=== PATIENT | female | born 1960 | race Hispanic/Latino ===

== ENCOUNTER 2018-02-26 15:31 | Emergency (ER) | payer OTHER ==
[2018-02-26 16:20] LABS: Urine Blood NEGATIVE (NEG); Urine Glucose 2+ (NEG); Urine Protein NEGATIVE (NEG); Urine pH 6.5 (5.0-7.0)
[2018-02-26 16:24] LABS: Absolute Monocytes 0.7 K/uL (0.1-1.3); Absolute Neutrophil 5.8 K/uL (1.8-8.0); Basophils % 0.3 % (0-1.3); Eosinophils % 1.6 % (0-4.4); Lymphocytes % 23.3 % (15.3-44.8); MCH 28.2 pg (27.0-35.0); MCV 83.8 fL (80-100); MPV 8.9 fL (7.6-11.3); Monocytes % 8.3 % (3.3-12.3); RBC Red Blood Cell Count 4.05 M/uL (3.86-4.86)
[2018-02-26 16:27] LABS: Urine Bacteria <20 /HPF (<20); Urine RBC NONE SEEN /HPF (NONE SEEN)
[2018-02-26 16:28] LABS: Urine Culture Reflex Order NOT NEEDED
[2018-02-26 16:28] LABS: Potassium 3.9 mmol/L (3.5-5.1)
--- NOTE | 2018-02-26 16:35 | RAD REPORT ---
EXAM DESCRIPTION: CT - Stone Protocol - 02/26/2018 4:14 pm CLINICAL HISTORY: Dysuria, right lower back and flank pain COMPARISON: CT November 2017 TECHNIQUE: Axial 5 mm thick images were obtained without oral or IV contrast. The [id number] span s the entirety of the system including uppermost abdomen and lung bases. All CT scans are performed using dose optimization technique as appropriate and may include automated exposure control or mA/KV adjustment according to patient size. FINDINGS: Fullness of the right renal pelvis is present similar to the comparison study. No UPJ ston e identified. Ureter is not dilated. No ureteral calculus seen. A 7 millimeter calcification upper po le right kidney is believed to be in the parenchyma rather than a calyx. Lobulated contour and areas of cortical thinning in the right kidney are probably from prior infection. Ischemic insults would be possible as well. Atrophic left kidney is present with parenchymal calcification. This is a stable a ppearance. No suspicious renal masses. Isodense masses and pyelonephritis are not excluded on a stone protocol CT scan. No urinary bladder suspicious finding. Uterus and ovaries show no suspicious findi ngs. Imaged portions of the liver, spleen and pancreas show no suspicious findings on non-contrast imaging . Gallbladder is absent. No biliary tree dilatation. No significant adrenal finding. No suspicious bowel findings. No appendicitis or acute GI process seen. There are mesenteric lymph no pao seen in the central abdomen similar to comparison. No hernia, mass or bulky lymphadenopathy noted. No free air, free fluid or inflammatory stranding. No significant bony abnormality. IMPRESSION: No obstructing calculus or acute finding identified. The above detailed findings are stable from November comparison. Isodense masses and pyelonephritis are not excluded on stone protocol technique. Elsewhere CT abdomen and pelvis imaging shows no new finding since November examination.
[2018-02-26] MEDS ORDERED: ONDANSETRON 4 MG/2 ML VIAL ONE (16:36)
--- NOTE | 2018-02-26 17:13 | ER ---
Nurse's Notes [facility] Name: Crystal Alexis Age: 57 yrs Sex: Female : 1960 Arrival Date: 02/26/2018 Time: 15:34 Bed 15 Private MD: None, None Diagnosis: Low back pain Presentation: 02/26 15:35 Presenting complaint: Patient states: Right lower back pain and burning with urination aj since yesterday. Denies fever. Denies taking OTC medications. Transition of care: patient was not received from another setting of care. Onset of symptoms was February 26, 2018. Risk Assessment: Do you want to hurt yourself or someone else? Patient reports no desire to harm self or others. Initial Sepsis Screen: Does the patient meet any 2 criteria? No. Patient's initial sepsis screen is negative. Does the patient have a suspected source of infection? No. Patient's initial sepsis screen is negative. Care prior to arrival: None. 15:35 Method Of Arrival: Ambulatory aj 15:35 Acuity: GARY 3 aj Triage Assessment: 15:35 General: Appears in no apparent distress. comfortable, Behavior is calm, cooperative, aj appropriate for age. Pain: Complains of pain in right mid back. Neuro: Level of Consciousness is awake, alert, obeys commands, Oriented to person, place, time, situation, Appropriate for age. Respiratory: Airway is patent Respiratory effort is even, unlabored, Respiratory pattern is regular, symmetrical. : Reports burning with urination, pain in right in lower back. Derm: Skin is intact, is healthy with good turgor, Skin is pink, warm \T\ dry. normal. Musculoskeletal: Capillary refill < 3 seconds, in bilateral fingers. Historical: - Allergies: 15:37 No Known Allergies; aj - Home Meds: 15:37 Metoprolol Tartrate Oral [Active]; Furosemide Oral [Active]; insulin [Active]; Insulin: aj Regular Sub-Q [Active]; Plavix 75 mg Oral tab 1 tab once daily [Active]; Metoprolol Tartrate Oral [Active]; Spironolactone Oral [Active]; unknown cholesterol med [Active]; - PMHx: 15:37 CVA; Diabetes - IDDM; Hypertension; Myocardial infarction; Renal Disease; aj - PSHx: 15:37 Tubal ligation; Cholecystectomy; cardiac stents x2; aj - Immunization history:: Adult Immunizations up to date. - Social history:: Smoking status: Patient uses tobacco products, smokes one-half pack cigarettes per day. - Ebola Screening: : Patient negative for fever greater than or equal to 101.5 degrees Fahrenheit, and additional compatible Ebola Virus Disease symptoms Patient denies exposure to infectious person Patient denies travel to an Ebola-affected area in the 21 days before illness onset No symptoms or risks identified at this time. Screenin:35 Abuse screen: Denies threats or abuse. Denies injuries from another. Nutritional jl7 screening: No deficits noted. Tuberculosis screening: No symptoms or risk factors identified. Fall Risk IV access (20 points). Assessment: 16:00 General: Appears in no apparent distress. uncomfortable, Behavior is calm, cooperative, jl7 appropriate for age. Pain: Complains of pain in right flank Pain radiates to right lower quadrant Pain currently is 8 out of 10 on a pain scale. Is continuous. Neuro: Level of Consciousness is awake, alert, obeys commands, Oriented to person, place, time, situation. Cardiovascular: Patient's skin is warm and dry. Respiratory: Airway is patent Respiratory effort is even, unlabored, Respiratory pattern is regular, symmetrical. GI: No signs and/or symptoms were reported involving the gastrointestinal system. : No signs and/or symptoms were reported regarding the genitourinary system. EENT: No signs and/or symptoms were reported regarding the EENT system. Derm: Skin is pink, warm \T\ dry. 16:35 Reassessment: pt c/o nausea, provider notified, see MAR for orders. jl7 Vital Signs: 15:35 BP 154 / 74; Pulse 90; Resp 18; Temp 97.4; Pulse Ox 100% on R/A; Weight 69.85 kg; aj Height 5 ft. 0 in. (152.40 cm); 16:35 BP 131 / 74; Pulse 85; Resp 16 S; Pulse Ox 96% on R/A; Pain 8/10; jl7 17:40 BP 135 / 77; Pulse 84; Resp 16 S; Pulse Ox 100% on R/A; jl7 15:35 Body Mass Index 30.08 (69.85 kg, 152.40 cm) ED Course: 15:34 Patient arrived in ED. mr 15:34 None, None is Private Physician. mr 15:35 Arm band placed on left wrist. Patient placed in an exam room. aj 15:36 Triage completed. aj 15:39 Adonis Duron PA is PHCP. jr8 15:39 Hiram Awan MD is Attending Physician. jr8 15:55 Lindsay Almanzar, ELIAZAR is Primary Nurse. jl7 16:08 Urine Microscopic Only Sent. mg2 16:10 Initial lab(s) drawn, by me, sent to lab. Inserted saline lock: 20 gauge in right jl7 forearm, using aseptic technique. Blood collected. 16:14 CT Stone Protocol In Process Unspecified. EDMS 16:35 Patient has correct armband on for positive identification. Bed in low position. Call jl7 light in reach. Side rails up X 1. Pulse ox on. NIBP on. Warm blanket given. 17:57 No provider procedures requiring assistance completed. IV discontinued, intact, jl7 bleeding controlled, No redness/swelling at site. Pressure dressing applied. Administered Medications: 16:50 Drug: Zofran 4 mg Route: IVP; Site: right forearm; jl7 17:00 Follow up: Response: No adverse reaction; Nausea is decreased jl7 17:40 Drug: morphine 4 mg Route: IVP; Site: right forearm; jl7 17:50 Follow up: Response: No adverse reaction; Pain is decreased jl7 Outcome: 17:12 Discharge ordered by . jr8 17:57 Discharged to home ambulatory, with family. jl7 17:57 Condition: stable 17:57 Discharge instructions given to patient, family, Instructed on discharge instructions, follow up and referral plans. medication usage, Demonstrated understanding of instructions, follow-up care, medications, Prescriptions given X 2. 18:02 Patient left the ED. jl7 Signatures: Dispatcher [employer] EDMS Nadia Greene RN RN aj SimoneMayuri mr Adonis Duron PA PA jr8 Lindsay Almanzar RN RN jl7 Reed Hernandez RN RN mg2 Corrections: (The following items were deleted from the chart) 15:37 15:35 Acuity: GARY 4 aj aj 17:58 04:50 Zofran 4 mg IVP in right forearm jl7 jl7
--- NOTE | 2018-02-26 17:13 | EDPHYS ---
Physician Documentation [facility] Name: Crystal Alexis Age: 57 yrs Sex: Female : 1960 Arrival Date: 02/26/2018 Time: 15:34 Bed 15 Private MD: None, None ED Physician Hiram Awan HPI: 02/26 15:59 This 57 yrs old Female presents to ER via Ambulatory with complaints of Back jr8 Pain. 15:59 The patient presents with pain that is acute. The symptoms are located in the right jr8 flank. Onset: The symptoms/episode began/occurred acutely, yesterday. The pain radiates to the abdomen. Associated signs and symptoms: Pertinent positives: dysuria, nausea. Modifying factors: The patient symptoms are alleviated by nothing, the patient symptoms are aggravated by nothing. Severity of symptoms: At their worst the symptoms were mild, in the emergency department the symptoms are unchanged. The patient has not experienced similar symptoms in the past. The patient has not recently seen a physician. Historical: - Allergies: 15:37 No Known Allergies; aj - Home Meds: 15:37 Metoprolol Tartrate Oral [Active]; Furosemide Oral [Active]; insulin [Active]; Insulin: aj Regular Sub-Q [Active]; Plavix 75 mg Oral tab 1 tab once daily [Active]; Metoprolol Tartrate Oral [Active]; Spironolactone Oral [Active]; unknown cholesterol med [Active]; - PMHx: 15:37 CVA; Diabetes - IDDM; Hypertension; Myocardial infarction; Renal Disease; aj - PSHx: 15:37 Tubal ligation; Cholecystectomy; cardiac stents x2; aj - Immunization history:: Adult Immunizations up to date. - Social history:: Smoking status: Patient uses tobacco products, smokes one-half pack cigarettes per day. - Ebola Screening: : Patient negative for fever greater than or equal to 101.5 degrees Fahrenheit, and additional compatible Ebola Virus Disease symptoms Patient denies exposure to infectious person Patient denies travel to an Ebola-affected area in the 21 days before illness onset No symptoms or risks identified at this time. ROS: 15:59 Constitutional: Negative for fever, chills, and weight loss. jr8 15:59 Abdomen/GI: Positive for nausea, Negative for abdominal pain, vomiting, diarrhea, abdominal distension, hematemesis, black/tarry stool, rectal pain, rectal bleeding, bowel incontinence, flatulence. 15:59 Back: Positive for pain at rest, of the right flank. 15:59 All other systems are negative. Exam: 15:59 Eyes: Pupils equal round and reactive to light, extra-ocular motions intact. Lids and jr8 lashes normal. Conjunctiva and sclera are non-icteric and not injected. Cornea within normal limits. Periorbital areas with no swelling, redness, or edema. ENT: Nares patent. No nasal discharge, no septal abnormalities noted. Tympanic membranes are normal and external auditory canals are clear. Oropharynx with no redness, swelling, or masses, exudates, or evidence of obstruction, uvula midline. Mucous membranes moist. Neck: Trachea midline, no thyromegaly or masses palpated, and no cervical lymphadenopathy. Supple, full range of motion without nuchal rigidity, or vertebral point tenderness. No Meningismus. Cardiovascular: Regular rate and rhythm with a normal S1 and S2. No gallops, murmurs, or rubs. Normal PMI, no JVD. No pulse deficits. Respiratory: Lungs have equal breath sounds bilaterally, clear to auscultation and percussion. No rales, rhonchi or wheezes noted. No increased work of breathing, no retractions or nasal flaring. Skin: Warm, dry with normal turgor. Normal color with no rashes, no lesions, and no evidence of cellulitis. MS/ Extremity: Pulses equal, no cyanosis. Neurovascular intact. Full, normal range of motion. Neuro: Awake and alert, GCS 15, oriented to person, place, time, and situation. Cranial nerves II-XII grossly intact. Motor strength 5/5 in all extremities. Sensory grossly intact. Cerebellar exam normal. Normal gait. 15:59 Abdomen/GI: Inspection: obese Bowel sounds: active, all quadrants, Palpation: soft, in all quadrants, moderate abdominal tenderness, in the anterior aspect of right lateral abdomen, mass, is not appreciated, rebound tenderness, is not appreciated, voluntary guarding, is not appreciated, involuntary guarding, is not appreciated, no appreciated organomegaly, Indicators: McBurney's point is not tender, Waldron's sign is negative, Rovsing's sign is negative, Liver: no appreciated palpable abnormalities, tenderness. 15:59 Back: pain, that is moderate, of the right flank, ROM is normal, normal spinal alignment noted, CVA tenderness, that is mild, is noted on the right, vertebral tenderness, is not appreciated. Vital Signs: 15:35 BP 154 / 74; Pulse 90; Resp 18; Temp 97.4; Pulse Ox 100% on R/A; Weight 69.85 kg; aj Height 5 ft. 0 in. (152.40 cm); 16:35 BP 131 / 74; Pulse 85; Resp 16 S; Pulse Ox 96% on R/A; Pain 8/10; jl7 17:40 BP 135 / 77; Pulse 84; Resp 16 S; Pulse Ox 100% on R/A; jl7 15:35 Body Mass Index 30.08 (69.85 kg, 152.40 cm) aj MDM: 15:39 Patient medically screened. jr8 17:09 Differential diagnosis: chronic back pain, Hydronephrosis Neoplasm Pyelonephritis jr8 ruptured disc, spinal injury, Ureterolithiasis. Data reviewed: vital signs, nurses notes, lab test result(s), radiologic studies, CT scan. Data interpreted: Pulse oximetry: on room air is 96 %. Interpretation: normal. Counseling: I had a detailed discussion with the patient and/or guardian regarding: the historical points, exam findings, and any diagnostic results supporting the discharge/admit diagnosis, lab results, radiology results, the need for outpatient follow up, a family practitioner, to return to the emergency department if symptoms worsen or persist or if there are any questions or concerns that arise at home. Response to treatment: the patient's symptoms have markedly improved after treatment. 02/26 15:57 Order name: Urine Microscopic Only; Complete Time: 16:28 [facility] 02/26 15:57 Order name: CBC with Diff; Complete Time: 16:27 [facility] 02/26 15:57 Order name: Basic Metabolic Panel; Complete Time: 16:28 [facility] 02/26 15:57 Order name: CT Stone Protocol; Complete Time: 16:37 [facility] 02/26 16:14 Order name: Urine Dipstick--Ancillary (enter results); Complete Time: 16:27 mt 02/26 16:14 Order name: Urine --Ancillary (enter results); Complete Time: 16:27 mt 02/26 15:57 Order name: Urine Dipstick-Ancillary (obtain specimen); Complete Time: 16:08 jr8 Administered Medications: 16:50 Drug: Zofran 4 mg Route: IVP; Site: right forearm; jl7 17:00 Follow up: Response: No adverse reaction; Nausea is decreased jl7 17:40 Drug: morphine 4 mg Route: IVP; Site: right forearm; jl7 17:50 Follow up: Response: No adverse reaction; Pain is decreased jl7 Disposition: 18:36 Co-signature as Attending Physician, Hiram Awan MD. rn Disposition: 02/26/18 17:12 Discharged to Home. Impression: Low back pain. - Condition is Stable. - Discharge Instructions: Back Pain, Adult, Musculoskeletal Pain. - Prescriptions for Tylenol- Codeine #3 300-30 mg Oral Tablet - take 2 tablet by ORAL route every 6 hours As needed; 30 tablet. Zofran 4 mg Oral Tablet - take 1 tablet by ORAL route every 12 hours As needed; 20 tablet. - Medication Reconciliation Form, Thank You Letter, Antibiotic Education, Prescription Opioid Use form. - Follow up: Private Physician; When: 2 - 3 days; Reason: Recheck today's complaints, Continuance of care, Re-evaluation by your physician. - Problem is new. - Symptoms have improved. Signatures: Dispatcher [employer] EDMS Nadia Greene RN Hiram Calle MD MD rn Roszak, Josh, PA PA jr8 Lindsay Almanzar RN RN jl7 Corrections: (The following items were deleted from the chart) 18:02 17:12 02/26/2018 17:12 Discharged to Home. Impression: Low back pain. Condition is jl7 Stable. Forms are Medication Reconciliation Form, Thank You Letter, Antibiotic Education, Prescription Opioid Use. Follow up: Private Physician; When: 2 - 3 days; Reason: Recheck today's complaints, Continuance of care, Re-evaluation by your physician. Problem is new. Symptoms have improved. jr8
[2018-02-26] MEDS ORDERED: MORPHINE 4 MG/ML SYR ONE (17:28)
== END 2018-02-26 18:02 | disposition home or self-care (01) ==
LOC: ER 15:31
DX: M54.5 Low back pain (principal); I10 Essential (primary) hypertension; E11.9 Type 2 diabetes mellitus without complications; I25.2 Old myocardial infarction; F17.210 Nicotine dependence, cigarettes, uncomplicated; Z79.01 Long term (current) use of anticoagulants; Z79.4 Long term (current) use of insulin; Z86.73 Personal history of transient ischemic attack (TIA), and cerebral infarction without residual deficits; Z95.818 Presence of other cardiac implants and grafts
CPT/HCPCS: 36415; 74176; 76377; 80048; 81025; 85025; 96374; 96375; 99284; J2405; 81003; 81015

== ENCOUNTER 2018-04-24 12:27 | Emergency (ER) | payer OTHER ==
--- OUTSIDE RECORDS SUMMARY | 2018-04-24 12:29 | XMS REPORT ---
:1960 [facility] Address [address] [place] [address] Dr. Ludwig [address] [place] [id number] Care Team Providers Name Role Phone Unavailable Unavailable Unavailable Problems This patient has no known problems. Allergies, Adverse Reactions, Alerts This patient has no known allergies or adverse reactions. Medications This patient has no known medications.
[2018-04-24 14:43] LABS: Urine Bacteria LOADED /HPF (<20); Urine Culture Reflex Order REFLEXED; Urine Mucus 1+ /HPF (NONE SEEN)
[2018-04-24 14:44] LABS: Urine Blood 1+ (NEG); Urine Glucose NEGATIVE (NEG); Urine Protein 2+ (NEG)
--- NOTE | 2018-04-24 14:59 | RAD REPORT ---
EXAM DESCRIPTION: CT - Stone Protocol - 04/24/2018 2:41 pm CLINICAL HISTORY: Back pain, dysuria, fever COMPARISON: February 26 CT imaging, August 2015 CT imaging TECHNIQUE: Axial 5 mm thick images were obtained without oral or IV contrast. The [id number] span s the entirety of the system partially obscuring uppermost abdomen and lung bases. All CT scans are performed using dose optimization technique as appropriate and may include automated exposure control or mA/KV adjustment according to patient size. FINDINGS: Right kidney shows no obstructing calculus. Fullness of the right pelvis and ureter unchan ged from February. The enlarged right kidney with a lobulated contour is similar to the prior study. N o perinephric stranding. The small atrophic left kidney has not changed. No suspicious renal masses. Isodense masses and pyelonephritis are not excluded on a stone protocol CT scan. No urinary bladder s uspicious finding. No significant adrenal finding. Uterus and ovaries show no suspicious findings. Imaged portions of the liver, spleen and pancreas show no suspicious findings on non-contrast imaging . No gallbladder or biliary tree abnormality identified. No suspicious bowel findings. Appendix is normal. A few small mesenteric lymph nodes are present in t he central abdomen. Focal parenchymal opacification in the right mid abdomen (image 45/157) has not c learly changed. This could be focal scarring from prior infectious or inflammatory process. No hernia, mass or bulky lymphadenopathy noted. No free air, free fluid or inflammatory stranding. No significant bony abnormality. IMPRESSION: No acute hydronephrosis or acute renal parenchymal process. The enlarged right kidney an d atrophic left kidney show no clear change from February 26 imaging. Isodense masses and pyelonephritis are not excluded on stone protocol technique. No acute GI process seen. There are a few small mesenteric lymph nodes in the central abdomen. Slight ly irregular or spiculated soft tissue is present in the right mid abdomen probably scarring. Carcino id or other more aggressive process is unlikely. Finding is not substantially different back to August 2015.
[2018-04-24 15:37] LABS: Absolute Lymphocytes (CBC) 1.4 K/uL (0.7-4.9); Absolute Monocytes 1.2 K/uL (0.1-1.3); Absolute Neutrophil 5.4 K/uL (1.8-8.0); Basophils % 0.3 % (0-1.3); Eosinophils % 0.1 % (0-4.4); Hematocrit 30.1 % (36.0-45.0); MCV 78.7 fL (80-100); MPV 9.4 fL (7.6-11.3); Monocytes % 15.2 % (3.3-12.3); RBC Red Blood Cell Count 3.83 M/uL (3.86-4.86)
[2018-04-24] MEDS ORDERED: CEFTRIAXONE/SWI 1gm 1 GM/10 ML SYR ONE (15:43)
[2018-04-24] MEDS ORDERED: KETOROLAC 30 MG/ML INJ ONE (15:43)
[2018-04-24 16:02] LABS: Albumin 2.9 g/dL (3.4-5.0); Bilirubin Direct 0.3 mg/dL (0-0.2); Bilirubin Total 0.6 mg/dL (0.2-1.0); Potassium 3.4 mmol/L (3.5-5.1); Protein, Total 7.7 g/dL (6.4-8.2)
[2018-04-24 16:06] LABS: Platelet Estimate ADEQ
[2018-04-24 16:07] LABS: Anisocytosis 2+; Blood Morphology Comment NOTED (NOT SEEN); Hypochromasia 1+; Polychromasia SLIGHT
--- NOTE | 2018-04-24 16:52 | EDPHYS ---
Physician Documentation [facility] Name: Crystal Alexis Age: 58 yrs Sex: Female : 1960 Arrival Date: 04/24/2018 Time: 12:29 Bed 13 Private MD: None, None ED Physician Abram Newell HPI: 04/24 14:15 This 58 yrs old Female presents to ER via Ambulatory with complaints of KIDNEY cp PAIN. 14:15 The patient complains of pain in the right mid back. cp 14:15 The pain does not radiate. cp 14:15 Onset: The symptoms/episode began/occurred 3 day(s) ago. cp 14:15 Associated signs and symptoms: Pertinent positives: dysuria, fever, Pertinent cp negatives: diarrhea, pain radiating to the lower extremities, vomiting. Severity of pain: in the emergency department the pain is unchanged despite home interventions. Historical: - Allergies: 12:44 No Known Allergies; sv - PMHx: 12:44 CVA; Diabetes - IDDM; Hypertension; Myocardial infarction; Renal Disease; sv - PSHx: 12:44 Tubal ligation; Cholecystectomy; cardiac stents x2; sv - Immunization history:: Flu vaccine is not up to date. - Social history:: Smoking status: Patient uses tobacco products, denies chronic smoking, but will smoke occasionally. - Ebola Screening: : No symptoms or risks identified at this time. ROS: 14:20 Constitutional: Negative for body aches, chills, fever, poor PO intake. cp 14:20 Eyes: Negative for injury, pain, redness, and discharge. cp 14:20 ENT: Negative for drainage from ear(s), ear pain, sore throat, difficulty swallowing, difficulty handling secretions. 14:20 Cardiovascular: Negative for chest pain, edema, palpitations. 14:20 Respiratory: Negative for cough, shortness of breath, wheezing. 14:20 Abdomen/GI: Positive for abdominal pain, nausea, Negative for vomiting, diarrhea, constipation, anorexia, black/tarry stool, rectal bleeding. 14:20 Back: Positive for flank pain, on the right, Negative for injury or acute deformity, decreased range of motion. 14:20 : Positive for burning with urination, Negative for vaginal bleeding, vaginal discharge. 14:20 Skin: Negative for cellulitis, diaphoresis, rash. 14:20 Neuro: Negative for dizziness, headache, weakness. 14:20 All other systems are negative. Exam: 14:27 Constitutional: The patient appears in no acute distress, alert, awake, non-toxic, well cp developed, well nourished. 14:27 Head/Face: Normocephalic, atraumatic. cp 14:27 Eyes: Periorbital structures: appear normal, Conjunctiva: normal, no exudate, no injection, Sclera: no appreciated abnormality, Lids and lashes: appear normal, bilaterally. 14:27 ENT: External ear(s): are unremarkable, Nose: is normal, Mouth: is normal, Posterior pharynx: is normal, airway is patent, no erythema, no exudate. 14:27 Neck: ROM/movement: is normal, is supple, without pain, no range of motions limitations, no nuchal rigidity. 14:27 Chest/axilla: Inspection: normal, Palpation: is normal, no crepitus, no tenderness. 14:27 Cardiovascular: Rate: normal, Rhythm: regular. 14:27 Respiratory: the patient does not display signs of respiratory distress, Respirations: normal, no use of accessory muscles, no retractions, no splinting, no tachypnea, labored breathing, is not present, Breath sounds: are clear throughout, no decreased breath sounds, no stridor, no wheezing. 14:27 Abdomen/GI: Inspection: abdomen appears normal, Bowel sounds: active, all quadrants, Palpation: soft, in all quadrants, mild abdominal tenderness, in the right upper quadrant and right lower quadrant, rebound tenderness, is not appreciated, voluntary guarding, is not appreciated, involuntary guarding, is not appreciated. 14:27 Back: CVA tenderness, that is mild, is noted on the right. 14:27 Skin: cellulitis, is not appreciated, no rash present. Vital Signs: 12:44 BP 121 / 71; Pulse 95; Resp 16; Temp 99.5; Pulse Ox 99% ; Weight 70.76 kg; Height 5 ft. sv 0 in. (152.40 cm); Pain 10/10; 14:00 BP 112 / 61; Pulse 78; Resp 18; Pulse Ox 99% on R/A; Pain 10/10; em 15:30 BP 100 / 63; Pulse 78; Resp 16; Pulse Ox 99% on R/A; Pain 10/10; em 17:18 BP 105 / 70; Pulse 79; Resp 18; Pulse Ox 98% on R/A; Pain 7/10; em 12:44 Body Mass Index 30.47 (70.76 kg, 152.40 cm) sv MDM: 14:01 Patient medically screened. cp 15:00 Differential diagnosis: nephrolithiasis, pyelonephritis, UTI, pancreatitis, sepsis. cp 16:50 Data reviewed: vital signs, nurses notes, lab test result(s), radiologic studies, CT cp scan. 16:50 Counseling: I had a detailed discussion with the patient and/or guardian regarding: the cp historical points, exam findings, and any diagnostic results supporting the discharge/admit diagnosis, lab results, radiology results, the need for outpatient follow up, a family practitioner, to return to the emergency department if symptoms worsen or persist or if there are any questions or concerns that arise at home. Response to treatment: the patient's symptoms have mildly improved after treatment, and as a result, I will discharge patient. 04/24 14:06 Order name: Urine Dipstick--Ancillary (enter results); Complete Time: 15:05 04/24 15:31 Interpretation: Normal except: UBLD 1+; UPROT 2+; UESTR 3+. 04/24 14:06 Order name: Urine Microscopic Only; Complete Time: 15:05 bd 12 15:05 Interpretation: Normal except: UWBC 20-50; URBC 5-10; UBACT LOADED. 04/24 14:29 Order name: Basic Metabolic Panel; Complete Time: 16:17 04/24 16:17 Interpretation: Normal except: NA 133; K 3.4; GLUC 214; BUN 27; CRE 2.20; GFR 23. 04/24 14:29 Order name: CBC with Diff; Complete Time: 16:17 04/24 16:00 Interpretation: Normal except: RBC 3.83; HGB 10.0; HCT 30.1; MCV 78.7; MCH 26.0; PLT cp 115; MN% 15.2. 04/24 14:29 Order name: Creatinine for Radiology; Complete Time: 16:00 04/24 16:00 Interpretation: Reviewed. 04/24 14:29 Order name: Hepatic Function; Complete Time: 16:17 04/24 16:18 Interpretation: Normal except: AST 9; BILID 0.3; ALB 2.9; GLOB 4.8; A/G 0.6. 04/24 14:29 Order name: Lipase; Complete Time: 16:17 04/24 14:29 Order name: CT Stone Protocol; Complete Time: 15:05 04/24 14:29 Order name: Lactate; Complete Time: 16:17 04/24 16:18 Interpretation: Within normal limits: LAC 1.0. 04/24 14:29 Order name: Procalcitonin; Complete Time: 16:47 04/24 16:47 Interpretation: Reviewed. 04/24 14:29 Order name: Blood Culture Adult (2) 04/24 14:44 Order name: Urine Culture EDWA 04/24 15:42 Order name: Manual Differential; Complete Time: 16:17 [facility] 04/24 16:18 Interpretation: Normal except: MONO 14. 04/24 14:29 Order name: IV Saline Lock; Complete Time: 15:28 04/24 14:29 Order name: Labs collected and sent; Complete Time: 15:28 04/24 14:29 Order name: Urine Test (obtain specimen) cp Administered Medications: 15:43 Drug: TORadol 15 mg Route: IVP; Site: right forearm; ss 17:11 Follow up: Response: No adverse reaction; Pain is decreased em 15:45 Drug: Rocephin 1 grams Route: IV; Rate: calculated rate; Site: right forearm; ss 16:33 Follow up: Response: No adverse reaction; IV Status: Completed infusion; IV Intake: 10mlem Disposition: 04/24/18 16:51 Discharged to Home. Impression: Urinary tract infection, site not specified. - Condition is Stable. - Discharge Instructions: Urinary Tract Infection, Adult. - Prescriptions for Augmentin 875- 125 mg Oral Tablet - take 1 tablet by ORAL route every 12 hours for 10 days; 20 tablet. - Medication Reconciliation Form, Thank You Letter, Antibiotic Education, Prescription Opioid Use form. - Follow up: Private Physician; When: 2 - 3 days; Reason: Recheck today's complaints. - Problem is new. - Symptoms have improved. Addendum: 04/27/2018 06:53 Co-signature as Attending Physician, Abram Newell MD I agree with the assessment and c lui plan of care. Signatures: Dispatcher [employer] Marylou Reddy RN RN Abram Flores MD MD cha Munoz, Edgar, PATTERN FITTER PATTERN FITTER Akanksha Guardado RN RN ss Page, Corey, PA PA cp Corrections: (The following items were deleted from the chart) 04/24 17:19 16:51 04/24/2018 16:51 Discharged to Home. Impression: Urinary tract infection, site em not specified. Condition is Stable. Forms are Medication Reconciliation Form, Thank You Letter, Antibiotic Education, Prescription Opioid Use. Follow up: Private Physician; When: 2 - 3 days; Reason: Recheck today's complaints. Problem is new. Symptoms have improved. cp
--- NOTE | 2018-04-24 16:52 | ER ---
Nurse's Notes [facility] Name: Crystal Alexis Age: 58 yrs Sex: Female : 1960 Arrival Date: 04/24/2018 Time: 12:29 Bed 13 Private MD: None, None Diagnosis: Urinary tract infection, site not specified Presentation: 04/24 12:43 Presenting complaint: Patient states: right back pain, burning with urination, sv subjective fever x 3 days. Transition of care: patient was not received from another setting of care. Transition of care: patient was not received from another setting of care. Onset of symptoms was April 21, 2018. Care prior to arrival: None. 12:43 Method Of Arrival: Ambulatory sv 12:43 Acuity: GARY 4 sv 13:30 Risk Assessment: Do you want to hurt yourself or someone else? Patient reports no em desire to harm self or others. Initial Sepsis Screen: Does the patient meet any 2 criteria? No. Patient's initial sepsis screen is negative. Does the patient have a suspected source of infection? Yes: Dysuria/Frequency/Urgency/UTI. Triage Assessment: 12:43 General: Appears in no apparent distress. uncomfortable, Behavior is calm, cooperative, sv appropriate for age. Pain: Complains of pain in right mid back and right low back Pain currently is 10 out of 10 on a pain scale. Neuro: Level of Consciousness is awake, alert, obeys commands, Oriented to person, place, time, situation, Moves all extremities. Full function Gait is steady. Respiratory: Respiratory effort is even, unlabored, Respiratory pattern is regular, symmetrical. : Reports burning with urination, pain in right in lower back. Historical: - Allergies: 12:44 No Known Allergies; sv - PMHx: 12:44 CVA; Diabetes - IDDM; Hypertension; Myocardial infarction; Renal Disease; sv - PSHx: 12:44 Tubal ligation; Cholecystectomy; cardiac stents x2; sv - Immunization history:: Flu vaccine is not up to date. - Social history:: Smoking status: Patient uses tobacco products, denies chronic smoking, but will smoke occasionally. - Ebola Screening: : No symptoms or risks identified at this time. Screenin:30 Abuse screen: Denies threats or abuse. Nutritional screening: No deficits noted. em Tuberculosis screening: No symptoms or risk factors identified. Fall Risk None identified. Assessment: 14:15 General: Appears in no apparent distress. comfortable, Behavior is calm, cooperative, em Denies fever. Pain: Complains of pain in right low back and right mid back Pain currently is 10 out of 10 on a pain scale. Quality of pain is described as sharp, shooting, Pain began 2-3 days ago. Neuro: Level of Consciousness is awake, alert, obeys commands. Cardiovascular: Patient's skin is warm and dry. Respiratory: Airway is patent Respiratory effort is even, unlabored, Respiratory pattern is regular, symmetrical. GI: Abdomen is flat, Patient currently denies nausea, vomiting. : Reports burning with urination, pain urgency. EENT: No signs and/or symptoms were reported regarding the EENT system. Derm: Skin is intact, is healthy with good turgor, Skin is pink, warm \T\ dry. Musculoskeletal: Capillary refill < 3 seconds, Range of motion: intact in all extremities. 15:30 Reassessment: Patient appears in no apparent distress at this time. Patient and/or em family updated on plan of care and expected duration. Pain level reassessed. Patient is alert, oriented x 3, equal unlabored respirations, skin warm/dry/pink. Patient states feeling better. 17:16 Reassessment: Patient appears in no apparent distress at this time. Patient and/or em family updated on plan of care and expected duration. Pain level reassessed. Patient is alert, oriented x 3, equal unlabored respirations, skin warm/dry/pink. rates pain 7/10 Patient states feeling better. Patient states symptoms have improved. Vital Signs: 12:44 BP 121 / 71; Pulse 95; Resp 16; Temp 99.5; Pulse Ox 99% ; Weight 70.76 kg; Height 5 ft. sv 0 in. (152.40 cm); Pain 10/10; 14:00 BP 112 / 61; Pulse 78; Resp 18; Pulse Ox 99% on R/A; Pain 10/10; em 15:30 BP 100 / 63; Pulse 78; Resp 16; Pulse Ox 99% on R/A; Pain 10/10; em 17:18 BP 105 / 70; Pulse 79; Resp 18; Pulse Ox 98% on R/A; Pain 7/10; em 12:44 Body Mass Index 30.47 (70.76 kg, 152.40 cm) ED Course: 12:29 Patient arrived in ED. sb2 12:30 None, None is Private Physician. sb2 12:43 Triage completed. sv 12:44 Arm band placed on. sv 14:00 Patient has correct armband on for positive identification. Placed in gown. Bed in low em position. Call light in reach. Side rails up X2. Adult w/ patient. 14:01 Abram Dunham PA is PHCP. cp 14:01 Abram Newell MD is Attending Physician. cp 14:14 Arthur Kaur LVN is Primary Nurse. em 14:42 CT Stone Protocol In Process Unspecified. EDMS 14:42 CT completed. Patient tolerated procedure well. Patient moved back from CT. nj 15:20 Inserted saline lock: 20 gauge in right forearm, using aseptic technique. Blood em collected. 15:20 Initial lab(s) drawn, by me, sent to lab. First set of blood cultures drawn. em 17:15 No provider procedures requiring assistance completed. IV discontinued, intact, em bleeding controlled, No redness/swelling at site. Pressure dressing applied. Administered Medications: 15:43 Drug: TORadol 15 mg Route: IVP; Site: right forearm; ss 17:11 Follow up: Response: No adverse reaction; Pain is decreased em 15:45 Drug: Rocephin 1 grams Route: IV; Rate: calculated rate; Site: right forearm; ss 16:33 Follow up: Response: No adverse reaction; IV Status: Completed infusion; IV Intake: 10mlem Intake: 16:33 IV: 10ml; Total: 10ml. em Outcome: 16:51 Discharge ordered by MD. cp 17:15 Discharged to home ambulatory, with family. em 17:15 Condition: good 17:15 Discharge instructions given to patient, Instructed on discharge instructions, follow up and referral plans. medication usage, Demonstrated understanding of instructions, follow-up care, medications, Prescriptions given X 1. 17:19 Patient left the ED. em Addendum: 04/27/2018 07:35 Addendum: Culture Results: Positive urine culture. No further action required. Bacteria s s sensitive to prescribed antibiotic. Signatures: Dispatcher [employer] Marylou Reddy RN RN Arthur Kaur LVN LVN em Akanksha Bueno RN RN Abram Aguirre PA PA cp Jordan, Nathan nj Billeau, Becky sb2
== END 2018-04-24 17:19 | disposition home or self-care (01) ==
LOC: ER 12:27
DX: N39.0 Urinary tract infection, site not specified (principal); I10 Essential (primary) hypertension; Z72.0 Tobacco use
CPT/HCPCS: 36415; 74176; 76377; 80048; 80076; 83605; 83690; 84145; 85025; 87040 ×2; 87077; 87086; 87088; 87186; 96365; 96375; 99284; J0696; 81003; 81015

== ENCOUNTER 2019-01-22 17:59 | Emergency (ER) | payer OTHER ==
--- OUTSIDE RECORDS SUMMARY | 2019-01-22 18:01 | XMS REPORT ---
:1960 [facility] Address [address] [place] [address] Dr. Ludwig [address] [place] [id number] Care Team Providers Name Role Phone Unavailable Unavailable Unavailable Problems This patient has no known problems. Allergies, Adverse Reactions, Alerts This patient has no known allergies or adverse reactions. Medications This patient has no known medications.
[2019-01-22] MEDS ORDERED: HYDROCODONE/APAP 5/325 MG TAB ONE (18:57)
--- NOTE | 2019-01-22 19:18 | RAD REPORT ---
EXAM DESCRIPTION: RAD - Shoulder Left 2 View - 01/22/2019 7:12 pm CLINICAL HISTORY: fall, shoudler pain COMPARISON: No comparisons FINDINGS: No acute fracture or dislocation evident.
--- NOTE | 2019-01-22 19:41 | EDPHYS ---
Physician Documentation [facility] Name: Crystal Alexis Age: 58 yrs Sex: Female : 1960 Arrival Date: 01/22/2019 Time: 18:01 Bed 25 Private MD: ED Physician Hiram Awan HPI: 01/22 18:53 This 58 yrs old Female presents to ER via Ambulatory with complaints of Arm jmm Pain, Headache. 18:53 The patient or guardian complains of injury, pain. Onset: The symptoms/episode jmm began/occurred acutely, last night. Modifying factors: The symptoms are alleviated by nothing. the symptoms are aggravated by movement. This is a 58 year old female that presents to the ED with complaints of left shoulder pain beginning last night after slipping and landing on her left side. Complains of left lateral neck pain. . Historical: - Allergies: 18:08 No Known Allergies; hb - Immunization history:: Adult Immunizations up to date. - Social history:: Smoking status: Patient uses tobacco products, smokes one-half pack cigarettes per day. - Ebola Screening: : No symptoms or risks identified at this time. ROS: 18:53 Constitutional: Negative for fever, chills, and weight loss, Cardiovascular: Negative jmm for chest pain, palpitations, and edema, Respiratory: Negative for shortness of breath, cough, wheezing, and pleuritic chest pain. 18:53 MS/extremity: Positive for injury or acute deformity, pain. 18:53 Neuro: Positive for headache. 18:53 All other systems are negative. Exam: 18:53 Constitutional: This is a well developed, well nourished patient who is awake, alert, jmm and in no acute distress. Head/Face: atraumatic. Eyes: EOMI, no conjunctival erythema appreciated ENT: Moist Mucus Membranes 18:53 Chest/axilla: Normal chest wall appearance and motion. Cardiovascular: Regular rate and rhythm. No edema appreciated Respiratory: Normal respirations, no respiratory distress appreciated Abdomen/GI: Non distended, soft Skin: General appearance color normal 18:53 Neck: C-spine: appears grossly normal, no vertebral tenderness, no crepitus. 18:53 Musculoskeletal/extremity: left anterior shoulder is tenderness, FROM appreciated, full television engineering teacher strength, NVI. 18:53 Skin: Appearance: Color: normal in color. 18:53 Neuro: Orientation: is normal, Mentation: is normal, Memory: is normal. 18:53 Psych: Behavior/mood is pleasant, cooperative. Vital Signs: 18:08 BP 135 / 72; Pulse 97; Resp 16; Temp 97.7; Pulse Ox 100% on R/A; Weight 67.13 kg; hb Height 5 ft. (152.40 cm); Pain 9/10; 19:30 BP 129 / 65; Pulse 77; Resp 18; Pulse Ox 99% on R/A; wh 18:08 Body Mass Index 28.90 (67.13 kg, 152.40 cm) hb MDM: 18:53 Patient medically screened. [facility] 19:39 Data reviewed: vital signs, nurses notes. Counseling: I had a detailed discussion with shannan the patient and/or guardian regarding: the historical points, exam findings, and any diagnostic results supporting the discharge/admit diagnosis, radiology results, the need for outpatient follow up, to return to the emergency department if symptoms worsen or persist or if there are any questions or concerns that arise at home. ED course: Imaging studies are negative. Patient advised to follow up with pcp and otherwise given strict return precautions. Patient understood and agrees with the plan of care. . 01/22 18:53 Order name: Shoulder Left (2 View) XRAY; Complete Time: 19:30 [facility] Administered Medications: 18:57 Drug: [place] 5 mg-325 mg 1 tabs Route: PO; 19:40 Follow up: Response: No adverse reaction; Pain is decreased; RASS: Alert and Calm (0) Disposition: 01/22/19 19:40 Discharged to Home. Impression: LEFT Shoulder Strain. - Condition is Stable. - Discharge Instructions: Shoulder Pain. - Prescriptions for orphenadrine citrate 100 mg Oral Tablet Sustained Release - take 1 tablet by ORAL route 2 times per day As needed; 20 tablet. - Medication Reconciliation Form, Thank You Letter, Antibiotic Education, Prescription Opioid Use form. - Follow up: Private Physician; When: 2 - 3 days; Reason: Recheck today's complaints, Continuance of care, Re-evaluation by your physician. Signatures: Dispatcher [employer] EDMS Selvin Sanchez PA PA jmm Baxter, Heather, RN RN Magnus Yan Corrections: (The following items were deleted from the chart) 19:53 19:40 01/22/2019 19:40 Discharged to Home. Impression: LEFT Shoulder Strain. Condition wh is Stable. Forms are Medication Reconciliation Form, Thank You Letter, Antibiotic Education, Prescription Opioid Use. Follow up: Private Physician; When: 2 - 3 days; Reason: Recheck today's complaints, Continuance of care, Re-evaluation by your physician. shannan
--- NOTE | 2019-01-22 19:41 | ER ---
Nurse's Notes [facility] Name: Crystal Alexis Age: 58 yrs Sex: Female : 1960 Arrival Date: 01/22/2019 Time: 18:01 Bed 25 Private MD: Diagnosis: LEFT Shoulder Strain Presentation: 01/22 18:06 Presenting complaint: Slipped while attempting to sit on couch last night, landed on hb couch on left side, now c/o left arm pain 01/19. Transition of care: patient was not received from another setting of care. Onset of symptoms was January 22, 2019. Risk Assessment: Do you want to hurt yourself or someone else? Patient reports no desire to harm self or others. Initial Sepsis Screen: Does the patient meet any 2 criteria? No. Patient's initial sepsis screen is negative. Does the patient have a suspected source of infection? No. Patient's initial sepsis screen is negative. Care prior to arrival: None. 18:06 Method Of Arrival: Ambulatory 18:06 Acuity: GARY 4 hb Triage Assessment: 19:00 Pain: Also complains of no other associated symptoms. wh 19:00 General: Behavior is calm, cooperative, appropriate for age. wh 19:00 Headache History: Denies prior headaches. Historical: - Allergies: 18:08 No Known Allergies; hb - Immunization history:: Adult Immunizations up to date. - Social history:: Smoking status: Patient uses tobacco products, smokes one-half pack cigarettes per day. - Ebola Screening: : No symptoms or risks identified at this time. Screenin:00 Abuse screen: Denies threats or abuse. Denies injuries from another. Nutritional wh screening: No deficits noted. Tuberculosis screening: No symptoms or risk factors identified. Fall Risk None identified. Assessment: 18:50 General: Appears in no apparent distress. Pain: Complains of pain in left arm Pain does wh not radiate. Pain currently is 9 out of 10 on a pain scale. Quality of pain is described as aching, Pain began 1 day ago. Neuro: Level of Consciousness is awake, alert, obeys commands. Cardiovascular: Capillary refill < 3 seconds. Respiratory: Airway is patent Respiratory effort is even, unlabored, Respiratory pattern is regular, symmetrical. GI: Abdomen is flat, non-distended. : No signs and/or symptoms were reported regarding the genitourinary system. EENT: No signs and/or symptoms were reported regarding the EENT system. Derm: Skin is intact, is healthy with good turgor, Skin is pink, warm \T\ dry. normal. Musculoskeletal: Circulation, motion, and sensation intact. 19:50 Reassessment: Patient appears in no apparent distress at this time. No changes from previously documented assessment. Patient and/or family updated on plan of care and expected duration. Pain level reassessed. Patient is alert, oriented x 3, equal unlabored respirations, skin warm/dry/pink. Patient states feeling better. Patient states symptoms have improved. Vital Signs: 18:08 BP 135 / 72; Pulse 97; Resp 16; Temp 97.7; Pulse Ox 100% on R/A; Weight 67.13 kg; hb Height 5 ft. (152.40 cm); Pain 9/10; 19:30 BP 129 / 65; Pulse 77; Resp 18; Pulse Ox 99% on R/A; wh 18:08 Body Mass Index 28.90 (67.13 kg, 152.40 cm) ED Course: 18:01 Patient arrived in ED. rg4 18:08 Triage completed. 18:08 Arm band placed on. 18:09 Magnus Cottrell is Primary Nurse. 18:21 Selvin Sanchez PA is PHCP. [facility] 18:21 Hiram Awan MD is Attending Physician. [facility] 19:00 Patient has correct armband on for positive identification. Bed in low position. Call light in reach. Side rails up X 1. Pulse ox on. NIBP on. 19:11 Shoulder Left (2 View) XRAY In Process Unspecified. EDMS 19:50 No provider procedures requiring assistance completed. Patient did not have IV access during this emergency room visit. Administered Medications: 18:57 Drug: [place] 5 mg-325 mg 1 tabs Route: PO; 19:40 Follow up: Response: No adverse reaction; Pain is decreased; RASS: Alert and Calm (0) Outcome: 19:40 Discharge ordered by . [facility] 19:52 Discharged to home ambulatory, with family. 19:52 Condition: good 19:52 Discharge instructions given to patient, family, Instructed on discharge instructions, follow up and referral plans. medication usage, POC Shoulder Pain Demonstrated understanding of instructions, follow-up care, medications, POC Prescriptions given X 1. 19:53 Patient left the ED. wh Signatures: Dispatcher [employer] EDSelvin Roberson PA PA jmm Baxter, Heather, RN RN Laurie Fraga4 Magnus Cottrell
[2019-01-22 20:48] VITALS: TEMP 97.7
[2019-01-22 20:51] VITALS: BP 129/65; O2SAT 99
== END 2019-01-22 19:53 | disposition home or self-care (01) ==
LOC: ER 17:59
DX: S46.912A Strain of unspecified muscle, fascia and tendon at shoulder and upper arm level, left arm, initial encounter (principal); W01.0XXA Fall on same level from slipping, tripping and stumbling without subsequent striking against object, initial encounter; Y93.9 Activity, unspecified; Y92.9 Unspecified place or not applicable; F17.210 Nicotine dependence, cigarettes, uncomplicated
CPT/HCPCS: 99284

== ENCOUNTER 2019-02-21 19:37 | Emergency (ER) | payer OTHER ==
[2019-02-21] MEDS ORDERED: ACETAMINOPHEN 325 MG TABLET ONE (21:05)
[2019-02-21] MEDS ORDERED: HYDROCODONE/APAP 5/325 MG TAB ONE (21:20)
--- NOTE | 2019-02-21 22:20 | EDPHYS ---
Physician Documentation [facility] Name: Crystal Alexis Age: 58 yrs Sex: Female : 1960 Arrival Date: 02/21/2019 Time: 19:43 Bed 26 Private MD: ED Physician Jori Wick HPI: 02/21 23:57 This 58 yrs old Female presents to ER via Wheelchair with complaints of Leg gs Pain. 23:57 The patient presents with pain. The complaints affect the left montano and dorsum of left gs foot. Onset: The symptoms/episode began/occurred 3 day(s) ago. Modifying factors: the symptoms are aggravated by movement. Associated signs and symptoms: Pertinent negatives numbness. Severity of symptoms: At their worst the symptoms were severe, in the emergency department the symptoms are unchanged. The patient has experienced similar episodes in the past, a few times. Historical: - Allergies: 20:05 No Known Allergies; aj1 - Home Meds: 20:05 Metoprolol Tartrate Oral [Active]; Furosemide Oral [Active]; pravastatin oral oral aj1 [Active]; Spironolactone Oral [Active]; Unknown cholesterol med [Active]; Insulin: Regular Sub-Q [Active]; Plavix 75 mg Oral tab 1 tab once daily [Active]; - PMHx: 20:05 CVA; Diabetes - IDDM; Hypertension; Myocardial infarction; Renal Disease; "Irregular aj1 heart beat"; "left kidney does not work"; - Immunization history:: Flu vaccine is not up to date. - Social history:: Smoking status: Patient uses tobacco products, smokes one-half pack cigarettes per day. - Ebola Screening: : Patient denies travel to an Ebola-affected area in the 21 days before illness onset. ROS: 23:57 All other systems are negative. gs Exam: 02/22 00:03 Head/Face: Normocephalic, atraumatic. Eyes: Pupils equal round and reactive to light, gs extra-ocular motions intact. Lids and lashes normal. Conjunctiva and sclera are non-icteric and not injected. Cornea within normal limits. Periorbital areas with no swelling, redness, or edema. ENT: Nares patent. No nasal discharge, no septal abnormalities noted. Tympanic membranes are normal and external auditory canals are clear. Oropharynx with no redness, swelling, or masses, exudates, or evidence of obstruction, uvula midline. Mucous membranes moist. Neck: Trachea midline, no thyromegaly or masses palpated, and no cervical lymphadenopathy. Supple, full range of motion without nuchal rigidity, or vertebral point tenderness. No Meningismus. Chest/axilla: Normal chest wall appearance and motion. Nontender with no deformity. No lesions are appreciated. Respiratory: Lungs have equal breath sounds bilaterally, clear to auscultation and percussion. No rales, rhonchi or wheezes noted. No increased work of breathing, no retractions or nasal flaring. Abdomen/GI: Soft, non-tender, with normal bowel sounds. No distension or tympany. No guarding or rebound. No evidence of tenderness throughout. Back: No spinal tenderness. No costovertebral tenderness. Full range of motion. Skin: Warm, dry with normal turgor. Normal color with no rashes, no lesions, and no evidence of cellulitis. Neuro: Awake and alert, GCS 15, oriented to person, place, time, and situation. Cranial nerves II-XII grossly intact. Motor strength 5/5 in all extremities. Sensory grossly intact. Cerebellar exam normal. Normal gait. Constitutional: The patient appears in no acute distress, alert, awake. Cardiovascular: Rate: normal. Musculoskeletal/extremity: Extremities: no evidence threatened limb no cold extremity, Pulses: noted to be 4+ in the right posterior tibial artery and right dorsalis pedis artery, noted to be 1+ in the left posterior tibial artery and left dorsalis pedis artery, biphasic on doppler. Vital Signs: 02/21 20:05 BP 115 / 41; Pulse 87; Resp 18; Temp 98.5; Pulse Ox 99% on R/A; Pain 9/10; aj1 21:08 BP 125 / 85; Pulse 85; Resp 18; Pulse Ox 99% on R/A; aj1 22:38 BP 136 / 72; Pulse 88; Resp 18; Pulse Ox 97% on R/A; aj1 MDM: 20:27 Patient medically screened. 02/22 00:03 Differential diagnosis: dvt,arterial occlusion,claudication. Data reviewed: vital gs signs, nurses notes. Counseling: I had a detailed discussion with the patient and/or guardian regarding: the historical points, exam findings, and any diagnostic results supporting the discharge/admit diagnosis, radiology results, the need for outpatient follow up. Response to treatment: the patient's symptoms have mildly improved after treatment. Physician consultation: Melyssa Handley MD regarding consult, patient's condition, need to evaluate the patient as soon as possible, and will see patient in office, shortly, tomorrow. 02/21 20:25 Order name: Extremity Venous Unilateral Ltd 02/21 20:25 Order name: LE Artery Uni Ltd Administered Medications: 02/21 21:26 Drug: [place] 5 mg-325 mg 1 tabs {Note: RASS score 0- patient is alert.} Route: PO; aj1 Disposition: 02/21/19 22:19 Discharged to Home. Impression: Other specified peripheral vascular diseases, Other idiopathic peripheral autonomic neuropathy. - Condition is Stable. - Discharge Instructions: Intermittent Claudication, Peripheral Neuropathy. - Prescriptions for gabapentin 100 mg Oral capsule - take 2 capsule by ORAL route 2 times per day; 28 capsule. Tylenol- Codeine #4 300-60 mg Oral Tablet - take 1 tablet by ORAL route every 12 hours As needed; 10 tablet. - Medication Reconciliation Form, Thank You Letter, Antibiotic Education, Prescription Opioid Use form. - Follow up: Melyssa Handley MD; When: 1 - 2 days; Reason: Re-evaluation by your physician. Signatures: Dispatcher [employer] Pushpa Reyes RN RN aj1 Jori Wick MD MD Corrections: (The following items were deleted from the chart) 22:39 22:19 02/21/2019 22:19 Discharged to Home. Impression: Other specified peripheral aj1 vascular diseases; Other idiopathic peripheral autonomic neuropathy. Condition is Stable. Forms are Medication Reconciliation Form, Thank You Letter, Antibiotic Education, Prescription Opioid Use. Follow up: Melyssa Handley; When: 1 - 2 days; Reason: Re-evaluation by your physician.
--- NOTE | 2019-02-21 22:20 | ER ---
Nurse's Notes [facility] Name: Crystal Alexis Age: 58 yrs Sex: Female : 1960 Arrival Date: 02/21/2019 Time: 19:43 Bed 26 Private MD: Diagnosis: Other specified peripheral vascular diseases;Other idiopathic peripheral autonomic neuropathy Presentation: 02/21 19:53 Presenting complaint: Patient states: Patient reports left leg pain from left pinky toe aj1 extending up to mid calf since this Friday. Denies any recent injury. Patient has full ROM in left leg. Palpated bilateral pedal pulses, pulse in left foot is weaker than in right foot. Transition of care: patient was not received from another setting of care. Onset of symptoms was February 21, 2019. Risk Assessment: Do you want to hurt yourself or someone else? Patient reports no desire to harm self or others. Initial Sepsis Screen: Does the patient meet any 2 criteria? No. Patient's initial sepsis screen is negative. Does the patient have a suspected source of infection? No. Patient's initial sepsis screen is negative. Care prior to arrival: None. 19:53 Method Of Arrival: Wheelchair aj1 19:53 Acuity: GARY 3 aj1 Triage Assessment: 20:05 General: Appears in no apparent distress. comfortable, Behavior is calm, cooperative, aj1 appropriate for age. Pain: Complains of pain in left montano, anterior aspect of left ankle and dorsum of left foot Pain does not radiate. Pain currently is 9 out of 10 on a pain scale. Historical: - Allergies: 20:05 No Known Allergies; aj1 - Home Meds: 20:05 Metoprolol Tartrate Oral [Active]; Furosemide Oral [Active]; pravastatin oral oral aj1 [Active]; Spironolactone Oral [Active]; Unknown cholesterol med [Active]; Insulin: Regular Sub-Q [Active]; Plavix 75 mg Oral tab 1 tab once daily [Active]; - PMHx: 20:05 CVA; Diabetes - IDDM; Hypertension; Myocardial infarction; Renal Disease; "Irregular aj1 heart beat"; "left kidney does not work"; - Immunization history:: Flu vaccine is not up to date. - Social history:: Smoking status: Patient uses tobacco products, smokes one-half pack cigarettes per day. - Ebola Screening: : Patient denies travel to an Ebola-affected area in the 21 days before illness onset. Screenin:08 Abuse screen: Denies threats or abuse. Denies injuries from another. Nutritional aj1 screening: No deficits noted. Tuberculosis screening: No symptoms or risk factors identified. 22:39 Fall Risk None identified. aj1 Assessment: 20:08 General: Appears in no apparent distress. comfortable, Behavior is calm, cooperative, aj1 appropriate for age. Pain: Complains of pain in dorsum of left foot and anterior aspect of left ankle and left montano Pain does not radiate. Pain currently is 9 out of 10 on a pain scale. Neuro: Level of Consciousness is awake, alert, obeys commands, Oriented to person, place, time, situation. Cardiovascular: Patient's skin is warm and dry. Pulses are 1+ in left dorsalis pedis artery are 3+ in right dorsalis pedis artery. Respiratory: Airway is patent Respiratory effort is even, unlabored, Respiratory pattern is regular, symmetrical. GI: No signs and/or symptoms were reported involving the gastrointestinal system. : No signs and/or symptoms were reported regarding the genitourinary system. EENT: No signs and/or symptoms were reported regarding the EENT system. Derm: No signs and/or symptoms reported regarding the dermatologic system. Skin is pink, warm \\T\\ dry. normal. Musculoskeletal: Range of motion: intact in all extremities. 21:08 Reassessment: Patient reports that she is having pain and would like pain medication. aj1 Notified Dr. Wick of patient complaint. Patient was offered Tylenol, but refuses, states that she has been taking Tylenol at home and that it hasn't been helping. Notified Dr. Wick No order received at this time. 21:15 Reassessment: Verbal order received to give patient [place] 5/325 mg PO x1 by Dr. Wick. aj1 21:30 Reassessment: Ultrasound at bedside. aj1 22:15 Reassessment: Dr. Wick at bedside to explain test results. aj1 Vital Signs: 20:05 BP 115 / 41; Pulse 87; Resp 18; Temp 98.5; Pulse Ox 99% on R/A; Pain 9/10; aj1 21:08 BP 125 / 85; Pulse 85; Resp 18; Pulse Ox 99% on R/A; aj1 22:38 BP 136 / 72; Pulse 88; Resp 18; Pulse Ox 97% on R/A; aj1 ED Course: 19:43 Patient arrived in ED. aj1 19:52 Jori Wick MD is Attending Physician. 19:53 Pushpa Batres RN is Primary Nurse. aj1 20:02 Triage completed. aj1 20:05 Arm band placed on. aj1 20:08 Patient has correct armband on for positive identification. aj1 20:08 No provider procedures requiring assistance completed. aj1 21:43 US Extremity Venous Unilateral Ltd In Process Unspecified. EDMS 21:43 US LE Artery Uni Ltd In Process Unspecified. EDMS 21:48 Ultrasound completed. Patient tolerated well. Notified ED Physician . sg3 22:18 Melyssa Handley MD is Referral Physician. 22:39 Patient did not have IV access during this emergency room visit. aj1 Administered Medications: 21:26 Drug: [place] 5 mg-325 mg 1 tabs {Note: RASS score 0- patient is alert.} Route: PO; aj1 Outcome: 22:19 Discharge ordered by . gs 22:39 Discharged to home ambulatory, with family. aj1 22:39 Condition: good 22:39 Discharge instructions given to patient, family, Instructed on discharge instructions, follow up and referral plans. no drinking with medication, no driving heavy equipment, medication usage, Demonstrated understanding of instructions, follow-up care, medications, Prescriptions given X 2. 22:39 Patient left the ED. aj1 Signatures: Dispatcher [employer] EDID Pushpa Batres, RN RN aj Jori Wick MD MD Kari Ward sg3
[2019-02-21 22:49] VITALS: TEMP 98.5
[2019-02-21 22:51] VITALS: BP 136/72; O2SAT 97
--- NOTE | 2019-02-22 07:14 | RAD REPORT ---
EXAM DESCRIPTION: US - Extremity Venous Uni Ltd - 02/21/2019 9:44 pm CLINICAL HISTORY: Left leg pain and swelling COMPARISON: None. TECHNIQUE: Real-time sonographic evaluation of the left lower extremity deep venous system was perfo rmed. FINDINGS: Normal compressibility, flow augmentation, phasic flow and spontaneous flow are identified in the left lower extremity common femoral, superficial femoral, popliteal and posterior tibial vein s. No intraluminal filling defects seen. IMPRESSION: No DVT in the left lower extremity.
--- NOTE | 2019-02-22 08:24 | RAD REPORT ---
EXAM DESCRIPTION: US - Lower Extremity Artery Uni Ltd - 02/21/2019 9:44 pm CLINICAL HISTORY: PAIN COMPARISON: No comparisons None. TECHNIQUE: Doppler evaluation of the arterial tree performed. Waveforms and velocity values were obt ained along with visual inspection. FINDINGS: No occlusion or focal flow restricting lesion identifiable. Minimal plaquing changes are i dentified in the crum of the left lower extremity arterial tree. Biphasic waveform pattern is presen t along the length of the left lower extremity. This may indicate aortic or iliac disease. IMPRESSION: No occlusion or flow restricting lesion in the left lower extremity arterial tree. Mild plaquing changes are seen along the crum.
== END 2019-02-21 22:39 | disposition home or self-care (01) ==
LOC: ER 19:37
DX: I73.89 Other specified peripheral vascular diseases (principal); G90.09 Other idiopathic peripheral autonomic neuropathy; E11.9 Type 2 diabetes mellitus without complications; I10 Essential (primary) hypertension; I25.2 Old myocardial infarction; F17.210 Nicotine dependence, cigarettes, uncomplicated
CPT/HCPCS: 93926; 93971; 99283

== ENCOUNTER 2019-09-22 22:39 | Emergency (ER) | payer OTHER, SELFPAY ==
--- OUTSIDE RECORDS SUMMARY | 2019-09-22 22:42 | XMS REPORT ---
:1960 Author Organization [employer] Care Team Providers Name Role Phone Melina Keyla Provider Role Unavailable Allergies, Adverse Reactions, Alerts Substance Reaction Event Type N.K.D.A. Info Not Available Non Drug Allergy Problems Problem Type Condition Code Onset Dates Condition Statu s Problem Left leg pain M79.605 Active Problem Depression F32.9 Active Problem Heart disease I51.9 Active Problem Hyperlipidemia E78.5 Active Assessment Hyperlipidemia, unspecified E78.5 Active hyperlipidemia type Problem Hypertension I10 Active Assessment Anxiety F41.9 Active Problem Essential hypertension I10 Activ e Problem Anxiety F41.9 Active Problem Stroke I63.9 Active Problem Diabetes E11.9 Active Problem PVD (peripheral vascular disease) I73.9 Active Assessment Essential hypertension I10 Activ e Assessment Uncontrolled type 2 diabetes E11.65 Active mellitus with hyperglycemia Assessment PVD (peripheral vascular disease) I73.9 Active Assessment S/P arterial stent Z95.9 Active Problem S/P arterial stent Z95.9 Active Problem Depression, unspecified depression F32.9 Active type Problem Hyperlipidemia, unspecified E78.5 Active hyperlipidemia type Problem Uncontrolled type 2 diabetes E11.65 Active mellitus with hyperglycemia Problem Kidney disease N28.9 Active Medications Medication Code Code Instructions Start End Status Dosage System Date Date Tresiba FlexTouch [facility] 64364744442 200 UNIT/ML Active as Subcutaneous 74 directed units once daily Glucose testing [facility] 33[address]-54110 n/s Jun 09, Active as strips subcutaneous 2020 directed Test BS three (dispense times daily testing strips of record) Lyrica ND 09599950649 75 MG Orally Active 2 capsu le Once a day Lasix ND 17670564532 40 MG Orally Active 1 table t Once a day Pravastatin ND 01460044456 40 MG Orally Active 1 t ablet Sodium Once a day Lancets ND 07028893554 - as directed Jun 09, Active as Test BS three 2020 directed times daily (dispense lancets of record) Gabapentin ND 11243735566 100 MG Orally Jun 09, Active 2 c apsules Twice daily 2019 Metoprolol [facility] 76601619113 100 MG Orally Active 1 t ablet Succinate ER Twice a day BusPIRone HCl [facility] 50510031721 7.5 MG Orally Active 1 tablet Twice a day as needed for anxiety Spironolactone [facility] 32208958270 25 MG Orally Mar 05, Active 1 tablet Once a day 2019 Plavix [facility] 92732160018 75 MG Orally Active 1 table t Once a day Pen [place] [facility] 10825573518 32G X 5 MM Mar 10, Active as Subcutaneous 2018 directed Once daily (To be used with Tresiba FlexTouch Pen) Results Name Result Date Reference Range Unit Abnormali ty Flag HEMOGLOBIN A1C ----A1C 11.5% [id number] Summary Purpose [employer] Submission
--- OUTSIDE RECORDS SUMMARY | 2019-09-22 22:42 | XMS REPORT ---
:1960 Author Organization [employer] Care Team Providers Name Role Phone Keyla Summers Provider Role Unavailable Allergies No Known Allergies Problems Problem Type Condition Code Onset Dates Condition Statu s Problem Left leg pain M79.605 Active Problem Depression F32.9 Active Problem Heart disease I51.9 Active Problem Hyperlipidemia E78.5 Active Problem Hypertension I10 Active Problem Essential hypertension I10 Activ e Problem Anxiety F41.9 Active Problem Stroke I63.9 Active Problem Diabetes E11.9 Active Problem PVD (peripheral vascular disease) I73.9 Active Assessment Essential hypertension I10 Activ e Problem S/P arterial stent Z95.9 Active Problem Depression, unspecified depression F32.9 Active type Problem Hyperlipidemia, unspecified E78.5 Active hyperlipidemia type Problem Uncontrolled type 2 diabetes E11.65 Active mellitus with hyperglycemia Problem Kidney disease N28.9 Active Medications Medication Code Code Instructions Start End Date Status Dosage System Date Metoprolol [facility] 33264906588 100 MG Orally Active 1 t ablet Succinate ER twice a day Results No Known Results Summary Purpose [employer]ClinicalWorks Submission
--- OUTSIDE RECORDS SUMMARY | 2019-09-22 22:42 | XMS REPORT ---
:1960 Author Organization [facility] t Address [address] [place] [address] Care Team Providers Name Role Phone Unavailable Unavailable Unavailable Payers Payer Name Policy Type Policy Number Effective Date Expiration Date S ource Problems Condition Condition Condition Status Onset Resolution Last Treating Co mments Source Name Details Category Date Date Treatment Clinician Date Left leg Left [facility] Depression Depression Problem Active [facility] , [facility] unspecifie unspecifie Me moria d d l depression depression Ou tpati type type ent Clinics Heart Heart Problem Active [facility] disease disease [facility] Hyperlipid Hyperlipid Problem Active [facility] emia, emia, [facility] unspecifie unspecifie Me moria d d l hyperlipid hyperlipid Ou tpati emia type emia type ent Clinics Essential Essential Diagnosis Active [facility] hypertensi hypertensi Sole kes - on [facility] Anxiety Anxiety Problem [facility] Stroke Stroke Problem [facility] Diabetes Diabetes [facility] PVD PVD Diagnosis Active [facility] (periphera (periphera Sole kes - l vascular l vascular Me moria disease) disease) l [facility] Uncontroll Uncontroll Problem Active [facility] ed type 2 ed type 2 [facility] - diabetes diabetes Memori a mellitus mellitus l with with [facility] hyperglyce hyperglyce en t [facility] S/P S/P Problem Active [facility] arterial arterial [facility] stent stent [facility] Kidney Kidney Problem Active [facility] disease disease [facility] Allergies, Adverse Reactions, Alerts Allergy Allergy Status Severity Reaction(s) Onset Inactive Treating Comm ents Source Name Type Date Date Clinician No Known DA Active U 2018-05 [facility] 0[facility] [place] [facility] 00:[facility]: [address] Medications Ordered Filled Start Stop Current Ordering Indication Dosage Frequency Signature Comments Components Source Medication Medication Date Date Medication? Clinician (SIG) Name Name Glucose Glucose Yes Keyla as [facility] testing testing 1-29 Millender directed [facility] - strips strips 00:00: (dispense Juan Carlos brionna 00 testing l strips of Outpati record) ent Clinics Lancets Lancets Yes Keyla as [facility] 1-29 [facility] directed [facility] - 00:00: (dispense Memoria 00 lancets of l record) [facility] ent Clinics Gabapentin Gabapentin Yes Keyla [address] [facility] 1-29 Millender [facility] - 00:[facility]: [facility] 00 l [facility] Pen [place] Pen [place]aton 2018-05 Yes Keyla as [facility] 0-30 Millender directed [facility] - 00:[facility]: [facility] 00 l [facility] Metoprolol Metoprolol Yes Keyla [address] [facility] Succinate Succinate Millender [facility] ER [facility] Tresiba Tresiba Yes Keyla as [facility] FlexTouch FlexTouch [facility] directed [facility]ics Lyrica Lyrica Yes Keyla 2 capsule [facility] Lasix Lasix Yes Keyla [address] [facility] [address] Millender [facility] Pravastatin Pravastatin Yes Keyla [address] [facility] [address] Sodium Sodium Millender [facility] BusPIRone BusPIRone Yes Keyla [address] [facility] [address] HCl HCl Millender as needed [facility] - for [facility]oria anxiety l [facility] Plavix Plavix Yes Keyla [address] [facility] [address] Millender [facility] Spironolact Spironolact Keyla [address] one one 10-25 Millender [facility] - 00:00 Memoria :00 l [facility] ent Clinics Procedures This patient has no known procedures. Encounters Start End Encounter Admission Attending Care Care Encounter Source Date/Time Date/Time Type Type Clinicians Facility Department ID 2019-06-09 2019-06-09 Outpatient Sony Frederick [id number] [facility] 13:00[facility]00 13:00:00 [facility] 2019-03-29 2019-03-29 Outpatient Soyn Cardozat [id number] [address] 14:58:00 14:58:00 [facility] 2019-03-10 2019-03-10 Outpatient Sony Cardozat [id number] [facility] 09[facility]00:00 09:00:00 [facility] Results Test Description Test Time Test Comments Results Result Comments Source PTT ACTIVATED 2019-03-02 10:34:00 Test Item Value Reference Range Interpretation Comme nts PTT ACTIVATED (test code = APTT) 26.1 SECONDS 22.0-33.0 CANCEL PER NURSE LORPU PT IS SON HEPARIN ANYMOREGLUCOSE BEDSIDE TESTING 2019-03-02 07:56:00 Test Item Value Reference Range Interpretation Comments GLUCOSE BEDSIDE TESTING (test code 244 MG/DL 60-99 H = GLUBED) GLUCOSE BEDSIDE [id number] 20:20:00 Test Item Value Reference Range Interpretation Comments GLUCOSE BEDSIDE TESTING (test code 228 MG/DL 60-99 H = GLUBED) PTT [id number] 19:26:00 Test Item Value Reference Range Interpretation Comments PTT ACTIVATED (test code = APTT) 23.4 SECONDS 22.0-33.0 N GLUCOSE BEDSIDE [id number] 16:04:00 Test Item Value Reference Range Interpretation Comments GLUCOSE BEDSIDE TESTING (test code 261 MG/DL 60-99 H = GLUBED) PTT [id number] 13:09:00 Test Item Value Reference Range Interpretation Comments PTT ACTIVATED (test code = APTT) 25.4 SECONDS 22.0-33.0 N GLUCOSE BEDSIDE [id number] 11:51:00 Test Item Value Reference Range Interpretation Comments GLUCOSE BEDSIDE TESTING (test code 220 MG/DL 60-99 H = GLUBED) GLUCOSE BEDSIDE [id number] 10:53:00 Test Item Value Reference Range Interpretation Comments GLUCOSE BEDSIDE TESTING (test code 213 MG/DL 60-99 H = GLUBED) GLUCOSE BEDSIDE [id number] 10:53:00 Test Item Value Reference Range Interpretation Comments GLUCOSE BEDSIDE TESTING (test code 271 MG/DL 60-99 H = GLUBED) PTT [id number] 10:34:00 Test Item Value Reference Range Interpretation Comments PTT ACTIVATED (test code = APTT) 27.9 SECONDS 22.0-33.0 GLUCOSE BEDSIDE [id number] 08:15:00 Test Item Value Reference Range Interpretation Comments GLUCOSE BEDSIDE TESTING (test code 272 MG/DL 60-99 H = GLUBED) PTT [id number] 03:34:00 Test Item Value Reference Range Interpretation Comments PTT ACTIVATED (test code = APTT) 44.1 SECONDS 22.0-33.0 H PLATELET [id number] 03:09:00 Test Item Value Reference Range Interpretation Comments PLATELET COUNT (test code = PLT) 165 K/MM3 129-368 N GLUCOSE BEDSIDE [id number] 20:14:00 Test Item Value Reference Range Interpretation Comments GLUCOSE BEDSIDE TESTING (test code 267 MG/DL 60-99 H = GLUBED) PTT [id number] 18:43:00 Test Item Value Reference Range Interpretation Comments PTT ACTIVATED (test code = APTT) 24.8 SECONDS 22.0-33.0 N CBC W/AUTO [id number] 18:30:00 Test Item Value Reference Range Interpretation Comments WHITE BLOOD CELL (test code = 9.3 K/MM3 3.8-9.8 N WBC) RED BLOOD CELL (test code = 3.79 M/MM3 3.58-4.97 N RBC) HEMOGLOBIN (test code = HGB) 8.3 G/DL 11.2-14.9 L HEMATOCRIT (test code = HCT) 27.8 % 33.2-43.5 L MEAN CELL VOLUME (test code = 73 fL 80.7-99.1 L MCV) MEAN CELL HGB (test code = MCH) 21.9 pg 27.0-34.1 L MEAN CELL HGB CONCETRATION 29.9 % 32.2-35.7 L (test code = MCHC) RED CELL DISTRIBUTION WIDTH 17.6 % 12.1-15.2 H (test code = RDW) PLATELET COUNT (test code = 194 K/MM3 129-368 N PLT) MEAN PLATELET VOLUME (test code 10.4 fl 7.4-10.4 N = MPV) NEUTROPHIL % (test code = NT%) 68.9 % 43-75 N IMMATURE GRANULOCYTE % (test 0.3 % 0.0-2.0 N code = IG%) LYMPHOCYTE % (test code = LY%) 18.6 % 14-44 N MONOCYTE % (test code = MO%) 10.6 % 4-13 N EOSINOPHIL % (test code = EO%) 1.5 % 0-6 N BASOPHIL % (test code = BA%) 0.1 % 0-2 N NUCLEATED RBC % (test code = 0.0 % 0-1.0 N NRBC%) NEUTROPHIL # (test code = NT#) 6.42 K/mm3 2.0-7.6 N IMMATURE GRANULOCYTE # (test 0.03 x10 3/uL 0-0.03 N code = IG#) LYMPHOCYTE # (test code = LY#) 1.73 K/mm3 1.0-3.8 N MONOCYTE # (test code = MO#) 0.99 K/mm3 0.1-0.8 H EOSINOPHIL # (test code = EO#) 0.14 K/mm3 0.0-0.2 N BASOPHIL # (test code = BA#) 0.01 K/mm3 0.0-0.2 N NUCLEATED RBC # (test code = 0.00 K/mm3 0.0-0.1 N NRBC#) GLUCOSE BEDSIDE [id number] 17:45:00 Test Item Value Reference Range Interpretation Comments GLUCOSE BEDSIDE TESTING (test code 274 MG/DL 60-99 H = GLUBED) GLUCOSE BEDSIDE [id number] 13:13:00 Test Item Value Reference Range Interpretation Comments GLUCOSE BEDSIDE TESTING (test code 173 MG/DL 60-99 H = GLUBED) BASIC METABOLIC [id number] 05:40:00 Test Item Value Reference Range Interpretation Comments SODIUM (test code = 133 MMOL/L 137-145 L NA) POTASSIUM (test code = 4.3 MMOL/L 3.5-5.1 N K) CHLORIDE (test code = 102 MMOL/L 98-107 CL) CARBON DIOXIDE (test 26 MMOL/L 22-30 N code = CO2) ANION GAP (test code = 9 MMOL/L 14-24 L GAP) GLUCOSE (test code = 197 MG/DL 74-106 H GLU) BLOOD UREA NITROGEN 24 MG/DL 7-17 H (test code = BUN) GLOMERULAR FILTRATION 36 Report ing units: RATE (test code = GFR) ml/mi n/1.73 m2 (Modified MDRD Formula)Referen ce Range: > or = 6 0 ml/min/1.73 m2 CREATININE (test code 1.50 MG/DL 0.52-1.04 H = CREAT) CALCIUM (test code = 8.2 MG/DL 8.4-10.2 L CA) CBC W/AUTO [id number] 05:13:00 Test Item Value Reference Range Interpretation Comments WHITE BLOOD CELL (test code = 9.9 K/MM3 3.8-9.8 H WBC) RED BLOOD CELL (test code = 3.86 M/MM3 3.58-4.97 N RBC) HEMOGLOBIN (test code = HGB) 8.3 G/DL 11.2-14.9 L HEMATOCRIT (test code = HCT) 28.1 % 33.2-43.5 L MEAN CELL VOLUME (test code = 73 fL 80.7-99.1 L MCV) MEAN CELL HGB (test code = MCH) 21.5 pg 27.0-34.1 L MEAN CELL HGB CONCETRATION 29.5 % 32.2-35.7 L (test code = MCHC) RED CELL DISTRIBUTION WIDTH 17.5 % 12.1-15.2 H (test code = RDW) PLATELET COUNT (test code = 180 K/MM3 129-368 N PLT) MEAN PLATELET VOLUME (test code 10.5 fl 7.4-10.4 H = MPV) NEUTROPHIL % (test code = NT%) 69.2 % 43-75 N IMMATURE GRANULOCYTE % (test 0.4 % 0.0-2.0 N code = IG%) LYMPHOCYTE % (test code = LY%) 18.4 % 14-44 N MONOCYTE % (test code = MO%) 10.8 % 4-13 N EOSINOPHIL % (test code = EO%) 1.0 % 0-6 N BASOPHIL % (test code = BA%) 0.2 % 0-2 N NUCLEATED RBC % (test code = 0.0 % 0-1.0 N NRBC%) NEUTROPHIL # (test code = NT#) 6.83 K/mm3 2.0-7.6 N IMMATURE GRANULOCYTE # (test 0.04 x10 3/uL 0-0.03 H code = IG#) LYMPHOCYTE # (test code = LY#) 1.82 K/mm3 1.0-3.8 N MONOCYTE # (test code = MO#) 1.07 K/mm3 0.1-0.8 H EOSINOPHIL # (test code = EO#) 0.10 K/mm3 0.0-0.2 N BASOPHIL # (test code = BA#) 0.02 K/mm3 0.0-0.2 N NUCLEATED RBC # (test code = 0.00 K/mm3 0.0-0.1 N NRBC#) GLUCOSE BEDSIDE [id number] 20:51:00 Test Item Value Reference Range Interpretation Comments GLUCOSE BEDSIDE TESTING (test code 229 MG/DL 60-99 H = GLUBED) GLYCOSYLATED HEMOGLOBIN [id number] 16:13:00 Test Item Value Reference Range Interpretation Comments GLYCOSYLATED 13.2 % 4.8-5.9 H Any condition t hat HEMOGLOBIN (HA1C) shortens e rythocyte (test code = survival or dec reasesmean GLYHGB) erythrocyte age (e.g., recovery from a cute blood loss,hemolytic anemia) will falsely lo wer HGBA1c resultsregardle ss of the method used. H GBA1c results from [facility] HbSS, HbCC, and HbSc must be interpreted with cautiongiven th e pathological pr ocesses, including anemia,increase d red cell turnover, trans fusion requirements, thatadversely i mpact HGBA1c as a mar ker of long-term glycemiccontrol . Alternative for ms of testing such as fructosaminesho uld be considered for these patients. MEAN BLOOD GLUCOSE 332 MG/DL 70-110 H (test code = MBG) [id number] 10:03:00 Test Item Value Reference Range Interpretation Comments ACT-ISTAT (test code = ACTI) 197 SEC 74-137 H GLUCOSE BEDSIDE [id number] 07:34:00 Test Item Value Reference Range Interpretation Comments GLUCOSE BEDSIDE TESTING (test code 385 MG/DL 60-99 HH = GLUBED) BASIC METABOLIC [id number] 06:59:00 Test Item Value Reference Range Interpretation Comments SODIUM (test code = 129 MMOL/L 137-145 L NA) POTASSIUM (test code = 4.3 MMOL/L 3.5-5.1 N K) CHLORIDE (test code = 90 MMOL/L 98-107 L CL) CARBON DIOXIDE (test 30 MMOL/L 22-30 N code = CO2) ANION GAP (test code = 13 MMOL/L 14-24 L GAP) GLUCOSE (test code = 401 MG/DL 74-106 HH CALLED TO SHELBY MCKINNON T.& READBACK ON 02/27/19 AT 065 9 BY Anthony Tinajero BLOOD UREA NITROGEN 33 MG/DL 7-17 H (test code = BUN) GLOMERULAR FILTRATION 29 Report ing units: RATE (test code = GFR) ml/mi n/1.73 m2 (Modified MDRD Formula)Referen ce Range: > or = 6 0 ml/min/1.73 m2 CREATININE (test code 1.80 MG/DL 0.52-1.04 H = CREAT) CALCIUM (test code = 8.8 MG/DL 8.4-10.2 N CA) LIPID PROFILE (CORONARY RISK)2019-02-27 06:59:00 Test Item Value Reference Range Interpretation Comments TRIGLYCERIDES (test 188 MG/DL TRIGLYCE RIDES code = TRIG) REFERENCE RANGE:Normal: < 150 mg/dLBorderline High: 150-199 mg/dLHi gh: 200-499 mg/dLVe ry High: >=500 mg/ dL CHOLESTEROL (test code 136 MG/DL <200 = CHOL) HDL CHOLESTEROL (test 49 MG/DL 40-59 N code = HDL) LIPOPROTEIN LDL (test 70 MG/DL 0-99 N code = LDL) OPTIMAL........ .<100 mg/dLNEAR OPTIMAL/ABOVE OPTIMAL........ .100-12 9 mg/dL BORDERLINE HIGH.........13 0-159 mg/dL HIGH.........16 0-189 mg/dL VERY HIGH...... ...>/= 190 mg/dL [id number] 06:59:00 Test Item Value Reference Range Interpretation Comments MAGNESIUM (test code = MAG) 2.0 MG/DL 1.6-2.3 N PROTHROMBIN [id number] 06:50:00 Test Item Value Reference Range Interpretation Comments PROTHROMBIN TIME 9.7 SECONDS 9.6-11.6 N PATIENT (test code = PTP) INTERNATIONAL NORMAL 0.9 0.8-1.1 N The INR is to be RATIO (test code = INR) used only for monitoring oral anticoagulantth erap y. INDICATION I NR VALUE ---- ---- ---- -------1. Prophylaxis, de ep venous thrombos is, including hig h risk surgery. 2.0 - 3.0 2. Prophylaxis, de ep venous thrombos is, hip surgery, treatment for d eep venous thrombosis or pulmonary prevention of systemic emboli sm in patients wit h valvular heart disease, atrial fibrillation, tissue heart va lve, or acute myocar dial infarction. 2.0 - 3 .0 3. Mechanical prosthesis hear t valves, recurrent syste amanda embolism. 3.0 - 4.5 Comments to Clinical Trainer: WILL BRING TO LABPTT [id number] 06:50:00 Test Item Value Reference Range Interpretation Comments PTT ACTIVATED (test > 139.0 SECONDS 22.0-33.0 HH YANCEY D TO & code = APTT) READBACK ON 02/27/19 AT 065 0 Lin Yeung nneamon Comments to Clinical Trainer: WILL BRING TO LABBASIC METABOLIC [id number] 06:37:00 Test Item Value Reference Range Interpretation Comments SODIUM (test code = 129 MMOL/L 137-145 L NA) POTASSIUM (test code = 4.3 MMOL/L 3.5-5.1 N K) CHLORIDE (test code = 90 MMOL/L 98-107 L CL) CARBON DIOXIDE (test MMOL/L 22-30 code = CO2) GLUCOSE (test code = MG/DL 74-106 GLU) BLOOD UREA NITROGEN MG/DL 7-17 (test code = BUN) GLOMERULAR FILTRATION 29 Report ing units: RATE (test code = GFR) ml/mi n/1.73 m2 (Modified MDRD Formula)Referen ce Range: > or = 6 0 ml/min/1.73 m2 CREATININE (test code 1.80 MG/DL 0.52-1.04 H = CREAT) CALCIUM (test code = MG/DL 8.7-9.7 CA) LIPID PROFILE (CORONARY RISK)2019-02-27 06:37:00 Test Item Value Reference Range Interpretation Comments TRIGLYCERIDES (test code = TRIG) MG/DL CHOLESTEROL (test code = CHOL) 136 MG/DL <200 HDL CHOLESTEROL (test code = HDL) MG/DL 40-59 LIPOPROTEIN LDL (test code = LDL) MG/DL 0-99 [id number] 06:37:00 Test Item Value Reference Range Interpretation Comments MAGNESIUM (test code = MAG) MG/DL 1.6-2.3 BASIC METABOLIC [id number] 06:35:00 Test Item Value Reference Range Interpretation Comments SODIUM (test code = NA) 129 MMOL/L 137-145 L POTASSIUM (test code = K) 4.3 MMOL/L 3.5-5.1 N CHLORIDE (test code = CL) 90 MMOL/L 98-107 L CARBON DIOXIDE (test code = CO2) MMOL/L 22-30 GLUCOSE (test code = GLU) MG/DL 74-106 BLOOD UREA NITROGEN (test code = MG/DL 7-17 BUN) GLOMERULAR FILTRATION RATE (test code = GFR) CREATININE (test code = CREAT) MG/DL 0.52-1.04 CALCIUM (test code = CA) MG/DL 8.7-9.7 LIPID PROFILE (CORONARY RISK)2019-02-27 06:35:00 Test Item Value Reference Range Interpretation Comments TRIGLYCERIDES (test code = TRIG) MG/DL CHOLESTEROL (test code = CHOL) MG/DL <200 HDL CHOLESTEROL (test code = HDL) MG/DL 40-59 LIPOPROTEIN LDL (test code = LDL) MG/DL 0-99 [id number] 06:35:00 Test Item Value Reference Range Interpretation Comments MAGNESIUM (test code = MAG) MG/DL 1.6-2.3 BASIC METABOLIC [id number] 06:34:00 Test Item Value Reference Range Interpretation Comments SODIUM (test code = NA) MMOL/L 137-145 POTASSIUM (test code = K) MMOL/L 3.5-5.1 CHLORIDE (test code = CL) 90 MMOL/L 98-107 L CARBON DIOXIDE (test code = CO2) MMOL/L 22-30 GLUCOSE (test code = GLU) MG/DL 74-106 BLOOD UREA NITROGEN (test code = MG/DL 7-17 BUN) GLOMERULAR FILTRATION RATE (test code = GFR) CREATININE (test code = CREAT) MG/DL 0.52-1.04 CALCIUM (test code = CA) MG/DL 8.7-9.7 LIPID PROFILE (CORONARY RISK)2019-02-27 06:34:00 Test Item Value Reference Range Interpretation Comments TRIGLYCERIDES (test code = TRIG) MG/DL CHOLESTEROL (test code = CHOL) MG/DL <200 HDL CHOLESTEROL (test code = HDL) MG/DL 40-59 LIPOPROTEIN LDL (test code = LDL) MG/DL 0-99 [id number] 06:34:00 Test Item Value Reference Range Interpretation Comments MAGNESIUM (test code = MAG) MG/DL 1.6-2.3 CBC W/AUTO [id number] 06:27:00 Test Item Value Reference Range Interpretation Comments WHITE BLOOD CELL (test code = 10.4 K/MM3 3.8-9.8 H WBC) RED BLOOD CELL (test code = 4.36 M/MM3 3.58-4.97 N RBC) HEMOGLOBIN (test code = HGB) 9.6 G/DL 11.2-14.9 L HEMATOCRIT (test code = HCT) 31.7 % 33.2-43.5 L MEAN CELL VOLUME (test code = 73 fL 80.7-99.1 L MCV) MEAN CELL HGB (test code = MCH) 22.0 pg 27.0-34.1 L MEAN CELL HGB CONCETRATION 30.3 % 32.2-35.7 L (test code = MCHC) RED CELL DISTRIBUTION WIDTH 17.0 % 12.1-15.2 H (test code = RDW) PLATELET COUNT (test code = 202 K/MM3 129-368 N PLT) MEAN PLATELET VOLUME (test code 10.7 fl 7.4-10.4 H = MPV) NEUTROPHIL % (test code = NT%) 71.4 % 43-75 N IMMATURE GRANULOCYTE % (test 0.5 % 0.0-2.0 N code = IG%) LYMPHOCYTE % (test code = LY%) 16.8 % 14-44 N MONOCYTE % (test code = MO%) 9.9 % 4-13 N EOSINOPHIL % (test code = EO%) 1.1 % 0-6 N BASOPHIL % (test code = BA%) 0.3 % 0-2 N NUCLEATED RBC % (test code = 0.0 % 0-1.0 N NRBC%) NEUTROPHIL # (test code = NT#) 7.44 K/mm3 2.0-7.6 N IMMATURE GRANULOCYTE # (test 0.05 x10 3/uL 0-0.03 H code = IG#) LYMPHOCYTE # (test code = LY#) 1.75 K/mm3 1.0-3.8 N MONOCYTE # (test code = MO#) 1.03 K/mm3 0.1-0.8 H EOSINOPHIL # (test code = EO#) 0.11 K/mm3 0.0-0.2 N BASOPHIL # (test code = BA#) 0.03 K/mm3 0.0-0.2 N NUCLEATED RBC # (test code = 0.00 K/mm3 0.0-0.1 N NRBC#)
--- OUTSIDE RECORDS SUMMARY | 2019-09-22 22:42 | XMS REPORT ---
[...] hyperlipidemia type Problem Hypertension I10 Active Assessment Left leg pain M79.605 Active Assessment Anxiety F41.9 Active Problem Essential [...] Problem Hyperlipidemia, unspecified E78.5 Active hyperlipidemia type Assessment Depression, unspecified depression F32.9 Active type Problem Uncontrolled type 2 diabetes E11.65 Active mellitus with hyperglycemia Problem Kidney disease N28.9 Active Medications Medication Code Code Instructions Start End Status Dosage System Date Date Lyrica [facility] 40217665324 75 MG Orally Active 2 capsu le Once a day Pen [place] [facility] 52260082441 32G X 5 MM Mar 10, Active as Subcutaneous 2019 directed Once daily (To be used with Tresiba FlexTouch Pen) Spironolactone ND 82756128208 25 MG Orally Active 1 tablet Once a day Metoprolol ND 42554157958 100 MG Orally Active 1 t ablet Succinate ER twice a day Pravastatin ND 58189341629 40 MG Orally Active 1 t ablet Sodium Once a day Lasix [facility] 37810065430 40 MG Orally Active 1 table t Once a day Coreg [facility] 30893520706 12.5 MG Orally Inactive 1 ta blet Twice a day BusPIRone HCl ND 96431745813 7.5 MG Orally Mar 10, Active 1 tablet Twice a day 2018 as needed for anxiety Toupascual SoloStar [facility] 83618020096 300 UNIT/ML Inactive as Subcutaneous 74 directed units daily Tresiba FlexTouch [facility] 44431400734 200 UNIT/ML Mar 10, Active as Subcutaneous 74 2019 directed units once daily Plavix [facility] 85047061981 75 MG Orally Active 1 table t Once a day Results Name Result Date Reference Range Unit Abnormali ty Flag HEMOGLOBIN A1C ----A1C 14.1% [id number] Summary Purpose eClinicalWorks Submission
--- NOTE | 2019-09-23 00:06 | ER ---
Nurse's Notes [facility] Name: Crystal Alexis Age: 59 yrs Sex: Female : 1960 Arrival Date: 09/22/2019 Time: 22:41 Bed Waiting Private MD: Diagnosis: Assessment: 09/21 22:30 Reassessment: Patient was called in and was not in main lobby. Pt left without been ao seen. ED Course: :41 Patient arrived in ED. cl3 09/22 00:06 Manuel Hernández MD is Attending Physician. mw2 Administered Medications: No medications were administered Outcome: 00:06 Patient left the ED. mw2 Signatures: Lawrence Mcadams RN RN Raiza Vicente mw2 Sara Gould cl3
--- NOTE | 2019-09-24 09:27 | EDPHYS ---
Physician Documentation [facility] Name: Crystal Alexis Age: 59 yrs Sex: Female : 1960 Arrival Date: 09/22/2019 Time: 22:41 Bed Waiting Private MD: ED Physician Manuel Hernández MDM: 09/22 06:38 Patient medically screened. [facility] 06:50 Data reviewed: Patient left prior to being evaluated by physcian.. [facility] Administered Medications: No medications were administered Disposition: 06:50 Co-signature as Attending Physician, Manuel Hernández MD. [facility] Disposition: 09/23/19 00:06 Patient left the facility before being seen by provider. - Patient left due to unknown. Signatures: Raiza Olson 2 Manuel Hernández MD MD 7
== END 2019-09-23 00:06 | disposition left against medical advice (07) ==
LOC: ER 22:39
DX: Z53.21 Procedure and treatment not carried out due to patient leaving prior to being seen by health care provider (principal)

== ENCOUNTER 2019-09-24 14:49 | Emergency (ER) | payer OTHER, SELFPAY ==
--- OUTSIDE RECORDS SUMMARY | 2019-09-24 15:17 | XMS REPORT ---
[...] End Date Status Dosage System Date Metoprolol [facility] [id number] 100 MG Orally Active 1 t ablet Succinate ER twice a day Results No Known Results Summary Purpose eClinicalWorks Submission
--- OUTSIDE RECORDS SUMMARY | 2019-09-24 15:17 | XMS REPORT ---
[...] End Status Dosage System Date Date Lyrica [facility] 86210216013 75 MG Orally Active 2 capsu le Once a day Pen [place] [facility] 44423561319 32G X 5 MM Mar 10, Active as Subcutaneous 2019 directed Once daily (To be used with Tresiba FlexTouch Pen) Spironolactone ND 16813299099 25 MG Orally Active 1 tablet Once a day Metoprolol ND 61129423137 100 MG Orally Active 1 t ablet Succinate ER twice a day Pravastatin ND 08310162387 40 MG Orally Active 1 t ablet Sodium Once a day Lasix [facility] 24557585552 40 MG Orally Active 1 table t Once a day Coreg [facility] 28944700434 12.5 MG Orally Inactive 1 ta blet Twice a day BusPIRone HCl ND 15214628808 7.5 MG Orally Mar 10, Active 1 tablet Twice a day 2018 as needed for anxiety Toupascual SoloStar [facility] [id number] 300 UNIT/ML Inactive as Subcutaneous 74 directed units daily Tresiba FlexTouch [facility] 66957346210 200 UNIT/ML Mar 10, Active as Subcutaneous 74 2019 directed units once daily Plavix [facility] 40078003094 75 MG Orally Active 1 table t Once a day Results Name Result Date Reference Range Unit Abnormali ty Flag HEMOGLOBIN A1C ----A1C 14.1% [id number] Summary Purpose eClinicalWorks Submission
--- OUTSIDE RECORDS SUMMARY | 2019-09-24 15:17 | XMS REPORT ---
:1960 Author Organization [facility] t Address [address] [place] [address] Care Team Providers Name Role Phone Unavailable [...] [facility] PVD PVD Diagnosis Active [facility]periphera Sole kes - l vascular l vascular Me moria disease) disease) l [facility] Uncontroll Uncontroll Problem Active [facility] ed type 2 ed type 2 [facility] - diabetes diabetes Memori a mellitus mellitus l with with Outpati hyperglyce hyperglyce en t [facility] S/P S/P Problem Active [facility] arterial arterial [facility] stent stent [facility] Kidney Kidney Problem Active [facility] disease disease [facility] Allergies, Adverse Reactions, Alerts Allergy Allergy Status Severity Reaction(s) Onset Inactive Treating Comm ents Source Name Type Date Date Clinician No Known DA Active U 2018-05 [facility] 0[facility]18 [place] 00:00: [address] Medications Ordered Filled Start Stop Current [...] (dispense Memoria 00 lancets of l record) [facility] Gabapentin Gabapentin Yes Keyla [address] [facility] 1-29 [facility] [place] 2018-05 Yes Keyla as [facility] Metoprolol Metoprolol Yes Keyla [address] [facility] Succinate Succinate [facility] Tresiba Treba Yes Keyla as [facility] FlexTouch FlexTouch [facility]ics Lyrica Lyrica Yes Keyla 2 capsule [facility] Lasix Lasix Yes Keyla [address] [facility] Pravastatin Pravastatin Yes Keyla [address] [facility] Sodium Sodium [facility] BusPIRone BusPIRone Yes Keyla [address] [facility] HCl HCl [facility] as needed [facility] for [facility] anxiety l [facility] Plavix Plavix Yes Keyla [address] [facility] Spironolact Spironolact Keyla [address] one one 10-25 [facility] - 00:00 [facility] :00 l [facility] Procedures This patient has no known procedures. Encounters Start End Encounter Admission Attending Care Care Encounter Source Date/Time Date/Time Type Type Clinicians Facility Department ID 2019-06-09 2019-06-09 Outpatient Sony Frederick [id number] [address] 13:00[facility]00 13:00:00 [facility] 2019-03-29 2019-03-29 Outpatient Sony Cardozat [id number] 14:58:00 14:58:00 [facility] ent [facility] 2019-03-10 2019-03-10 Outpatient Sony Cardozat [id number] 09:00:00 09:00:00 [facility] Results Test Description Test Time Test [...] MG/DL 60-99 H = GLUBED) GLUCOSE BEDSIDE [id number] 20:20:00 Test Item Value Reference Range Interpretation Comments GLUCOSE BEDSIDE TESTING (test code 228 MG/DL 60-99 H = GLUBED) PTT [id number] 19:26:00 Test Item Value Reference Range Interpretation Comments PTT ACTIVATED (test code = APTT) 23.4 SECONDS 22.0-33.0 N GLUCOSE BEDSIDE [id number] 16:04:00 Test Item Value Reference Range Interpretation Comments GLUCOSE BEDSIDE TESTING (test code 261 MG/DL 60-99 H = GLUBED) PTT [id number] 13:09:00 Test Item Value Reference Range Interpretation Comments PTT ACTIVATED (test code = APTT) 25.4 SECONDS 22.0-33.0 N GLUCOSE BEDSIDE [id number] 11:51:00 Test Item Value Reference Range Interpretation Comments GLUCOSE BEDSIDE TESTING (test code 220 MG/DL 60-99 H = GLUBED) GLUCOSE BEDSIDE [id number] 10:53:00 Test Item Value Reference Range Interpretation Comments GLUCOSE BEDSIDE TESTING (test code 213 MG/DL 60-99 H = GLUBED) GLUCOSE BEDSIDE [id number] 10:53:00 Test Item Value Reference Range Interpretation Comments GLUCOSE BEDSIDE TESTING (test code 271 MG/DL 60-99 H = GLUBED) PTT [id number] 10:34:00 Test Item Value Reference Range Interpretation Comments PTT ACTIVATED (test code = APTT) 27.9 SECONDS 22.0-33.0 GLUCOSE BEDSIDE [id number] 08:15:00 Test Item Value Reference Range Interpretation Comments GLUCOSE BEDSIDE TESTING (test code 272 MG/DL 60-99 H = GLUBED) PTT [id number] 03:34:00 Test Item Value Reference Range Interpretation Comments PTT ACTIVATED (test code = APTT) 44.1 SECONDS 22.0-33.0 H PLATELET [id number] 03:09:00 Test Item Value Reference Range Interpretation Comments PLATELET COUNT (test code = PLT) 165 K/MM3 129-368 N GLUCOSE BEDSIDE [id number] 20:14:00 Test Item Value Reference Range Interpretation Comments GLUCOSE BEDSIDE TESTING (test code 267 MG/DL 60-99 H = GLUBED) PTT [id number] 18:43:00 Test Item Value Reference Range Interpretation Comments PTT ACTIVATED (test code = APTT) 24.8 SECONDS 22.0-33.0 N CBC W/AUTO [id number] 18:30:00 Test Item Value Reference Range Interpretation [...] 0.00 K/mm3 0.0-0.1 N NRBC#) GLUCOSE BEDSIDE [id number] 17:45:00 Test Item Value Reference Range Interpretation Comments GLUCOSE BEDSIDE TESTING (test code 274 MG/DL 60-99 H = GLUBED) GLUCOSE BEDSIDE [id number] 13:13:00 Test Item Value Reference Range Interpretation Comments GLUCOSE BEDSIDE TESTING (test code 173 MG/DL 60-99 H = GLUBED) BASIC METABOLIC [id number] 05:40:00 Test Item Value Reference Range Interpretation [...] 8.2 MG/DL 8.4-10.2 L CA) CBC W/AUTO [id number] 05:13:00 Test Item Value Reference Range Interpretation [...] 0.00 K/mm3 0.0-0.1 N NRBC#) GLUCOSE BEDSIDE [id number] 20:51:00 Test Item Value Reference Range Interpretation Comments GLUCOSE BEDSIDE TESTING (test code 229 MG/DL 60-99 H = GLUBED) GLYCOSYLATED HEMOGLOBIN [id number] 16:13:00 Test Item Value Reference Range Interpretation [...] MG/DL 70-110 H (test code = MBG) [id number] 10:03:00 Test Item Value Reference Range Interpretation Comments ACT-ISTAT (test code = ACTI) 197 SEC 74-137 H GLUCOSE BEDSIDE [id number] 07:34:00 Test Item Value Reference Range Interpretation Comments GLUCOSE BEDSIDE TESTING (test code 385 MG/DL 60-99 HH = GLUBED) BASIC METABOLIC [id number] 06:59:00 Test Item Value Reference Range Interpretation [...] 02/27/19 AT 065 9 BY Anthony Tinajero er BLOOD UREA NITROGEN 33 MG/DL 7-17 H [...] 0-189 mg/dL VERY HIGH...... ...>/= 190 mg/dL [id number] 06:59:00 Test Item Value Reference Range Interpretation Comments MAGNESIUM (test code = MAG) 2.0 MG/DL 1.6-2.3 N PROTHROMBIN [id number] 06:50:00 Test Item Value Reference Range Interpretation [...] amanda embolism. 3.0 - 4.5 Comments to Windshield Repair Technician: WILL BRING TO LABPTT [id number] 06:50:00 Test Item Value Reference Range Interpretation Comments PTT ACTIVATED (test > 139.0 SECONDS 22.0-33.0 HH YANCEY D TO & code = APTT) READBACK ON 02/27/19 AT 065 0 Lin Yeung nnes Comments to Windshield Repair Technician: WILL BRING TO LABBASIC METABOLIC [id number] 06:37:00 Test Item Value Reference Range Interpretation [...] LDL (test code = LDL) MG/DL 0-99 [id number] 06:37:00 Test Item Value Reference Range Interpretation Comments MAGNESIUM (test code = MAG) MG/DL 1.6-2.3 BASIC METABOLIC [id number] 06:35:00 Test Item Value Reference Range Interpretation [...] LDL (test code = LDL) MG/DL 0-99 [id number] 06:35:00 Test Item Value Reference Range Interpretation Comments MAGNESIUM (test code = MAG) MG/DL 1.6-2.3 BASIC METABOLIC [id number] 06:34:00 Test Item Value Reference Range Interpretation [...] LDL (test code = LDL) MG/DL 0-99 [id number] 06:34:00 Test Item Value Reference Range Interpretation Comments MAGNESIUM (test code = MAG) MG/DL 1.6-2.3 CBC W/AUTO [id number] 06:27:00 Test Item Value Reference Range Interpretation [...]
--- OUTSIDE RECORDS SUMMARY | 2019-09-24 15:17 | XMS REPORT ---
[...] Status Dosage System Date Date Tresiba FlexTouch [facility] 34707960677 200 UNIT/ML Active as Subcutaneous 74 directed units once daily Glucose testing [facility] [id number] n/s Jun 09, Active as strips subcutaneous 2020 directed Test BS three (dispense times daily testing strips of record) Lyrica ND 29671043683 75 MG Orally Active 2 capsu le Once a day Lasix ND 37111602482 40 MG Orally Active 1 table t Once a day Pravastatin ND 44730521091 40 MG Orally Active 1 t ablet Sodium Once a day Lancets ND 65248605913 - as directed Jun 09, Active as Test BS three 2020 directed times daily (dispense lancets of record) Gabapentin ND 42630534004 100 MG Orally Jun 09, Active 2 c apsules Twice daily [address] [facility] 36944194634 100 MG Orally Active 1 t ablet Succinate ER Twice a day BusPIRone HCl [facility] 12307128817 7.5 MG Orally Active 1 tablet Twice a day as needed for anxiety Spironolactone [facility] 66033794891 25 MG Orally Mar 05, Active 1 tablet Once a day [address] [facility] 80975117585 75 MG Orally Active 1 table t Once a day Pen [place] [facility] 25527631233 32G X 5 MM Mar 10, Active as Subcutaneous 2018 directed Once daily (To be used with Tresiba FlexTouch Pen) Results Name Result Date Reference Range Unit Abnormali ty Flag HEMOGLOBIN A1C ----A1C 11.5% [id number] Summary Purpose eClinicalWorks Submission
--- NOTE | 2019-09-24 16:10 | RAD REPORT ---
EXAM DESCRIPTION: RAD - Foot Left 3 View - 09/24/2019 4:05 pm CLINICAL HISTORY: PAIN Trauma, pain COMPARISON: No comparisons FINDINGS: No acute fracture or dislocation is seen. Prominent calcaneal spurs are seen.
--- NOTE | 2019-09-24 16:37 | ER ---
Nurse's Notes [facility] Name: Crystal Alexis Age: 59 yrs Sex: Female : 1960 Arrival Date: 09/24/2019 Time: 14:52 Bed 4 Private MD: Diagnosis: Abrasion, left foot Presentation: 09/23 15:06 Chief complaint: Patient states: Hit middle toe on the L foot 5 days ago on a wooden ca1 table. Reports swelling and pain on L foot. Coronavirus screen: Proceed with normal triage. Patient denies a cough. Patient denies shortness of breath or difficulty breathing. Patient denies measured and/or subjective temperature greater than 100.4F prior to today's visit. Patient denies travel on a cruise ship or to a country the [facility] currently lists as an affected area. Patient denies contact with known and/or suspected case of COVID-19. Ebola Screen: Patient negative for fever greater than or equal to 101.5 degrees Fahrenheit, and additional compatible Ebola Virus Disease symptoms Patient denies exposure to infectious person. Patient denies travel to an Ebola-affected area in the 21 days before illness onset. No symptoms or risks identified at this time. Initial Sepsis Screen: Does the patient meet any 2 criteria? No. Patient's initial sepsis screen is negative. Does the patient have a suspected source of infection? No. Patient's initial sepsis screen is negative. Risk Assessment: Do you want to hurt yourself or someone else? Patient reports no desire to harm self or others. Onset of symptoms was September 24, 2019. 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 - Social history:: Smoking status: Patient reports the use of cigarette tobacco products, smokes one-half pack cigarettes per day, Patient/guardian denies using alcohol, street drugs, The patient lives with family. - Family history:: not pertinent. Screenin:10 Abuse screen: Denies threats or abuse. Denies injuries from another. Nutritional jl7 screening: No deficits noted. Tuberculosis screening: No symptoms or risk factors identified. Fall Risk None identified. Assessment: 16:10 General: Appears in no apparent distress. uncomfortable, Behavior is calm, cooperative, jl7 appropriate for age. Pain: Complains of pain in left foot Pain currently is 10 out of 10 on a pain scale. Neuro: Level of Consciousness is awake, alert, obeys commands, Oriented to person, place, time, situation. Cardiovascular: Patient's skin is warm and dry. Respiratory: Airway is patent Respiratory effort is even, unlabored, Respiratory pattern is regular, symmetrical. Derm: Skin is pink, warm \\T\\ dry. Vital Signs: 15:06 BP 135 / 77; Pulse 97; Resp 15 S; Temp 97.2(TE); Pulse Ox 100% on R/A; Weight 68.04 kg ca1 (R); Height 5 ft. 0 in. (152.40 cm) (R); Pain 10/10; 15:06 Body Mass Index 29.29 (68.04 kg, 152.40 cm) ca1 ED Course: 14:52 Patient arrived in ED. as 15:08 Triage completed. ca1 15:10 Arm band placed on right wrist. ca1 15:49 Gary Solis MD is Attending Physician. ma2 16:05 XRAY Foot LEFT 3 View In Process Unspecified. EDMS 16:10 Patient has correct armband on for positive identification. Bed in low position. Call jl7 light in reach. Side rails up X 1. 16:15 Lindsay Almanzar RN is Primary Nurse. jl7 16:56 No provider procedures requiring assistance completed. Patient did not have IV access jl7 during this emergency room visit. Administered Medications: 16:50 Drug: Tylenol #3 (300 mg-30 mg) 1 tablet Route: PO; jl7 16:57 Follow up: Response: Medication administered at discharge. jl7 16:57 Not Given (Physician Discretion): Tylenol 500 mg PO once jl7 Outcome: 16:36 Discharge ordered by . ravin 16:56 Discharged to home ambulatory. jl7 16:56 Condition: stable 16:56 Discharge instructions given to patient, Instructed on discharge instructions, follow up and referral plans. medication usage, Demonstrated understanding of instructions, follow-up care, medications, Prescriptions given X 2. 16:57 Patient left the ED. jl7 Signatures: Dispatcher [employer] Nanci Mathis Jahala, RN RN jl7 Gary Solis MD MD ma2 Yolanda Bang RN RN ca1
--- NOTE | 2019-09-24 16:37 | EDPHYS ---
Physician Documentation [facility] [place] [place] Name: Crystal Alexis Age: 59 yrs Sex: Female : 1960 Arrival Date: 09/24/2019 Time: 14:52 Bed 4 Private MD: ED Physician Gary Solis HPI: 09/23 16:34 This 59 yrs old Female presents to ER via Ambulatory with complaints of Feet ma2 Swelling. 16:34 The patient presents with an abrasion. The complaints affect the right foot. Onset: The ma2 symptoms/episode began/occurred suddenly, 1 day(s) ago. Severity of symptoms: At their worst the symptoms were moderate, in the emergency department the symptoms are unchanged. The patient has not experienced similar symptoms in the past. hit a table and sustained an abrasion to left foot,. Historical: - Allergies: 15:10 No Known Allergies; ca1 - Home Meds: 15:10 Furosemide Oral [Active]; Insulin: Regular Sub-Q [Active]; Metoprolol Tartrate Oral ca1 [Active]; Plavix 75 mg Oral tab 1 tab once daily [Active]; pravastatin Oral [Active]; Spironolactone Oral [Active]; - PMHx: 15:10 "irregular heart beat"; CVA; "left kidney does not work"; Diabetes - IDDM; ca1 Hypertension; Myocardial infarction; Renal Disease; - PSHx: 15:10 Cholecystectomy; Tubal ligation; ca1 - Immunization history:: Adult Immunizations up to date, Last tetanus immunization: unknown. - Social history:: Smoking status: Patient reports the use of cigarette tobacco products, smokes one-half pack cigarettes per day, Patient/guardian denies using alcohol, street drugs, The patient lives with family. - Family history:: not pertinent. ROS: 16:34 MS/extremity: Positive for injury or acute deformity, abrasion, Negative for rash. ma2 16:34 Constitutional: Negative for fever, chills, and weight loss. 16:34 All other systems are negative. Exam: 16:34 Constitutional: This is a well developed, well nourished patient who is awake, alert, ma2 and in no acute distress. Chest/axilla: Normal chest wall appearance and motion. Nontender with no deformity. No lesions are appreciated. Cardiovascular: Regular rate and rhythm with a normal S1 and S2. No gallops, murmurs, or rubs. Normal PMI, no JVD. No pulse deficits. Respiratory: Lungs have equal breath sounds bilaterally, clear to auscultation and percussion. No rales, rhonchi or wheezes noted. No increased work of breathing, no retractions or nasal flaring. Abdomen/GI: Soft, non-tender, with normal bowel sounds. No distension or tympany. No guarding or rebound. No evidence of tenderness throughout. Back: No spinal tenderness. No costovertebral tenderness. Full range of motion. Skin: left 2nd toe mildely erythemetus and tip is purpulish, she states all this happened after the trauma. Warm, dry with normal turgor. Normal color with no rashes, no lesions, and no evidence of cellulitis. MS/ Extremity: Pulses equal, no cyanosis. Neurovascular intact. Full, normal range of motion. Neuro: Awake and alert, GCS 15, oriented to person, place, time, and situation. Cranial nerves II-XII grossly intact. Motor strength 5/5 in all extremities. Sensory grossly intact. Cerebellar exam normal. Normal gait. Vital Signs: 15:06 BP 135 / 77; Pulse 97; Resp 15 S; Temp 97.2(TE); Pulse Ox 100% on R/A; Weight 68.04 kg ca1 (R); Height 5 ft. 0 in. (152.40 cm) (R); Pain 10/10; 15:06 Body Mass Index 29.29 (68.04 kg, 152.40 cm) ca1 MDM: 15:49 Patient medically screened. ma2 16:34 Differential diagnosis: fracture, sprain, foreign body. Data reviewed: vital signs, ma2 nurses notes. Counseling: I had a detailed discussion with the patient and/or guardian regarding: the historical points, exam findings, and any diagnostic results supporting the discharge/admit diagnosis, the presence of at least one elevated blood pressure reading (>120/80) during this emergency department visit, the need for outpatient follow up. Response to treatment: the patient's symptoms have markedly improved after treatment. 09/23 15:10 Order name: XRAY Foot LEFT 3 View; Complete Time: 16:33 ca1 Administered Medications: 16:50 Drug: Tylenol #3 (300 mg-30 mg) 1 tablet Route: PO; jl7 16:57 Follow up: Response: Medication administered at discharge. jl7 16:57 Not Given (Physician Discretion): Tylenol 500 mg PO once jl7 Disposition: 09/24/19 16:36 Discharged to Home. Impression: Abrasion, left foot. - Condition is Stable. - Discharge Instructions: Crush Injury of the Foot, [id number]. - Prescriptions for Diclofenac Sodium 75 mg Oral Tablet Sustained Release - take 1 tablet by ORAL route 2 times per day; 30 tablet. Tylenol- Codeine #3 300-30 mg Oral Tablet - take 2 tablet by ORAL route every 6 hours As needed; 6 tablet. - Medication Reconciliation Form, Thank You Letter, Antibiotic Education, Prescription Opioid Use form. - Follow up: Private Physician; When: Tomorrow; Reason: Continuance of care. Signatures: Dispatcher [employer] Lindsay Mercedes RN RN jl7 Gary Solis MD MD ma2 Yolanda Bang RN RN ca1 Corrections: (The following items were deleted from the chart) 16:57 16:36 09/24/2019 16:36 Discharged to Home. Impression: Abrasion, left foot. Condition jl7 is Stable. Forms are Medication Reconciliation Form, Thank You Letter, Antibiotic Education, Prescription Opioid Use. Follow up: Private Physician; When: Tomorrow; Reason: Continuance of care. ravin
[2019-09-24] MEDS ORDERED: CODEINE 30MG/APAP 300MG TAB ONE (16:48)
[2019-09-24 17:04] VITALS: BP 135/77; TEMP 97.2; O2SAT 100
== END 2019-09-24 16:57 | disposition home or self-care (01) ==
LOC: ER 14:49
DX: S90.812A Abrasion, left foot, initial encounter (principal); F17.210 Nicotine dependence, cigarettes, uncomplicated; W22.03XA Walked into furniture, initial encounter; Y93.9 Activity, unspecified; Y92.9 Unspecified place or not applicable; Z79.01 Long term (current) use of anticoagulants; Z79.4 Long term (current) use of insulin; Z86.73 Personal history of transient ischemic attack (TIA), and cerebral infarction without residual deficits; I10 Essential (primary) hypertension; E11.9 Type 2 diabetes mellitus without complications
CPT/HCPCS: 99283

== ENCOUNTER 2019-10-08 23:20 | Emergency (ER) | payer OTHER ==
--- OUTSIDE RECORDS SUMMARY | 2019-10-08 23:24 | XMS REPORT ---
:1960 Author Organization [facility] t Address [address] [place] [address] Care Team Providers Name Role Phone Unavailable [...] [facility] PVD PVD Diagnosis Active [facility]periphera (periphera Sole kes - l vascular l vascular Me moria disease) disease) l [facility] Uncontroll Uncontroll Problem Active [facility] ed type 2 ed type 2 [facility] - diabetes diabetes Memori a mellitus mellitus l with with [facility] hyperglyce hyperglyce en t [facility] Clin[facility] S/P S/P Problem Active [facility] arterial arterial [facility] - stent stent [facility] Kidney Kidney Problem Active [facility] disease disease [facility] Allergies, Adverse Reactions, Alerts Allergy Allergy Status Severity Reaction(s) Onset Inactive Treating Comm ents Source Name Type Date Date Clinician No Known DA Active U 2018-05 [facility] [place] 00:[facility]: [address] Medications Ordered Filled Start Stop Current [...] (dispense Memoria 00 lancets of l record) [facility] Gabapentin Gabapentin Yes Keyla [address] [facility] 1-29 [facility] - 00:00: [facility]oria 00 l [facility] [place] 2018-05 Yes Keyla as [facility] directed [facility] - 00:[facility]: [facility] 00 l [facility] Metoprolol Metoprolol Yes Keyla [address] [facility] Succinate Succinate [facility] - ER ER [facility] l [facility]ics Tresiba Tresiba Yes Keyla as [facility] FlexTouch FlexTouch [facility] directed [facility] Lyrica Lyrica Yes Keyla 2 capsule [facility] Lasix Lasix Yes Keyla [address] [facility] Pravastatin Pravastatin Yes Keyla [address] [facility] Sodium Sodium [facility] BusPIRone BusPIRone Yes Keyla [address] [address] HCl HCl Millender as needed [facility] - for Memoria anxiety l [facility] Plavix Plavix Yes Keyla [address] [address] [facility] Spironolact Spironolact Keyla [address] [facility] one one 10-25 Millender [facility] - 00:00 Memoria :00 l [facility] Procedures This patient has no known procedures. Encounters Start End Encounter Admission Attending Care Care Encounter Source Date/Time Date/Time Type Type Clinicians Facility Department ID 2019-06-09 2019-06-09 Outpatient Sony Frederick [id number] 13:00[facility]00 13:00[facility]00 [facility] 2019-03-29 2019-03-29 Outpatient Sony Cardozat [id number] 14[facility]58:00 14:58:00 [facility] 2019-03-10 2019-03-10 Outpatient Sony Cardozat [id number] 09:00:00 09:00:00 [facility] Results Test Description Test Time Test Comments [...] MG/DL 60-99 H = GLUBED) GLUCOSE BEDSIDE [id number] 20:20:00 Test Item Value Reference Range Interpretation Comments GLUCOSE BEDSIDE TESTING (test code 228 MG/DL 60-99 H = GLUBED) PTT [id number] 19:26:00 Test Item Value Reference Range Interpretation Comments PTT ACTIVATED (test code = APTT) 23.4 SECONDS 22.0-33.0 N GLUCOSE BEDSIDE [id number] 16:04:00 Test Item Value Reference Range Interpretation Comments GLUCOSE BEDSIDE TESTING (test code 261 MG/DL 60-99 H = GLUBED) PTT [id number] 13:09:00 Test Item Value Reference Range Interpretation Comments PTT ACTIVATED (test code = APTT) 25.4 SECONDS 22.0-33.0 N GLUCOSE BEDSIDE [id number] 11:51:00 Test Item Value Reference Range Interpretation Comments GLUCOSE BEDSIDE TESTING (test code 220 MG/DL 60-99 H = GLUBED) GLUCOSE BEDSIDE [id number] 10:53:00 Test Item Value Reference Range Interpretation Comments GLUCOSE BEDSIDE TESTING (test code 213 MG/DL 60-99 H = GLUBED) GLUCOSE BEDSIDE [id number] 10:53:00 Test Item Value Reference Range Interpretation Comments GLUCOSE BEDSIDE TESTING (test code 271 MG/DL 60-99 H = GLUBED) PTT [id number] 10:34:00 Test Item Value Reference Range Interpretation Comments PTT ACTIVATED (test code = APTT) 27.9 SECONDS 22.0-33.0 GLUCOSE BEDSIDE [id number] 08:15:00 Test Item Value Reference Range Interpretation Comments GLUCOSE BEDSIDE TESTING (test code 272 MG/DL 60-99 H = GLUBED) PTT [id number] 03:34:00 Test Item Value Reference Range Interpretation Comments PTT ACTIVATED (test code = APTT) 44.1 SECONDS 22.0-33.0 H PLATELET [id number] 03:09:00 Test Item Value Reference Range Interpretation Comments PLATELET COUNT (test code = PLT) 165 K/MM3 129-368 N GLUCOSE BEDSIDE [id number] 20:14:00 Test Item Value Reference Range Interpretation Comments GLUCOSE BEDSIDE TESTING (test code 267 MG/DL 60-99 H = GLUBED) PTT [id number] 18:43:00 Test Item Value Reference Range Interpretation Comments PTT ACTIVATED (test code = APTT) 24.8 SECONDS 22.0-33.0 N CBC W/AUTO [id number] 18:30:00 Test Item Value Reference Range Interpretation [...] 0.00 K/mm3 0.0-0.1 N NRBC#) GLUCOSE BEDSIDE [id number] 17:45:00 Test Item Value Reference Range Interpretation Comments GLUCOSE BEDSIDE TESTING (test code 274 MG/DL 60-99 H = GLUBED) GLUCOSE BEDSIDE [id number] 13:13:00 Test Item Value Reference Range Interpretation Comments GLUCOSE BEDSIDE TESTING (test code 173 MG/DL 60-99 H = GLUBED) BASIC METABOLIC [id number] 05:40:00 Test Item Value Reference Range Interpretation [...] 8.2 MG/DL 8.4-10.2 L CA) CBC W/AUTO [id number] 05:13:00 Test Item Value Reference Range Interpretation [...] 0.00 K/mm3 0.0-0.1 N NRBC#) GLUCOSE BEDSIDE [id number] 20:51:00 Test Item Value Reference Range Interpretation Comments GLUCOSE BEDSIDE TESTING (test code 229 MG/DL 60-99 H = GLUBED) GLYCOSYLATED HEMOGLOBIN [id number] 16:13:00 Test Item Value Reference Range Interpretation [...] MG/DL 70-110 H (test code = MBG) [id number] 10:03:00 Test Item Value Reference Range Interpretation Comments ACT-ISTAT (test code = ACTI) 197 SEC 74-137 H GLUCOSE BEDSIDE [id number] 07:34:00 Test Item Value Reference Range Interpretation Comments GLUCOSE BEDSIDE TESTING (test code 385 MG/DL 60-99 HH = GLUBED) BASIC METABOLIC [id number] 06:59:00 Test Item Value Reference Range Interpretation [...] 0-189 mg/dL VERY HIGH...... ...>/= 190 mg/dL [id number] 06:59:00 Test Item Value Reference Range Interpretation Comments MAGNESIUM (test code = MAG) 2.0 MG/DL 1.6-2.3 N PROTHROMBIN [id number] 06:50:00 Test Item Value Reference Range Interpretation [...] amanda embolism. 3.0 - 4.5 Comments to End Lathe Operator: WILL BRING TO LABPTT [id number] 06:50:00 Test Item Value Reference Range Interpretation Comments PTT ACTIVATED (test > 139.0 SECONDS 22.0-33.0 HH YANCEY D TO & code = APTT) READBACK ON 02/27/19 AT 065 0 Lin Yeung nneamon Comments to End Lathe Operator: WILL BRING TO LABBASIC METABOLIC [id number] 06:37:00 Test Item Value Reference Range Interpretation [...] LDL (test code = LDL) MG/DL 0-99 [id number] 06:37:00 Test Item Value Reference Range Interpretation Comments MAGNESIUM (test code = MAG) MG/DL 1.6-2.3 BASIC METABOLIC [id number] 06:35:00 Test Item Value Reference Range Interpretation [...] LDL (test code = LDL) MG/DL 0-99 [id number] 06:35:00 Test Item Value Reference Range Interpretation Comments MAGNESIUM (test code = MAG) MG/DL 1.6-2.3 BASIC METABOLIC [id number] 06:34:00 Test Item Value Reference Range Interpretation [...] LDL (test code = LDL) MG/DL 0-99 [id number] 06:34:00 Test Item Value Reference Range Interpretation Comments MAGNESIUM (test code = MAG) MG/DL 1.6-2.3 CBC W/AUTO [id number] 06:27:00 Test Item Value Reference Range Interpretation [...]
[2019-10-08] MEDS ORDERED: MORPHINE 4 MG/ML SYR ONE (23:49)
[2019-10-08] MEDS ORDERED: FAMOTIDINE 20 MG/2 ML VIAL IV ONE (23:49)
[2019-10-08] MEDS ORDERED: ONDANSETRON 4 MG/2 ML VIAL ONE (23:49)
[2019-10-08] MEDS ORDERED: NA CHLORIDE 0.9% 1,000 ML ONE (23:49)
[2019-10-08 23:54] LABS: Absolute Lymphocytes (CBC) 1.7 K/uL (0.7-4.9); MPV 8.2 fL (7.6-11.3)
[2019-10-08 23:58] LABS: Basophils % 0.3 % (0-1.3); Hematocrit 26.8 % (36.0-45.0); Lymphocytes % 18.7 % (15.3-44.8); RBC Red Blood Cell Count 4.01 M/uL (3.86-4.86)
[2019-10-09 00:15] LABS: Anisocytosis 1+; Blood Morphology Comment NOTED (NOT SEEN); Elliptocytes 1+; Hypochromasia 2+; Platelet Estimate ADEQ; Poikilocytosis 1+; Teardrop Cell 1+; Urine White Blood Cell Casts OK
[2019-10-09 00:19] LABS: Albumin 3.1 g/dL (3.4-5.0); Bilirubin Direct 0.1 mg/dL (0-0.2); Bilirubin Total 0.3 mg/dL (0.2-1.0); Potassium 4.1 mmol/L (3.5-5.1); Protein, Total 7.9 g/dL (6.4-8.2)
[2019-10-09] MEDS ORDERED: MORPHINE 4 MG/ML SYR ONE (01:43)
[2019-10-09 03:42] VITALS: TEMP 97.6
[2019-10-09 03:45] VITALS: BP 145/71; O2SAT 99
--- NOTE | 2019-10-09 15:54 | RAD REPORT ---
EXAM DESCRIPTION: CT ABDOMEN AND PELVIS WITHOUT CONTRAST CLINICAL HISTORY: Abdominal pain. COMPARISON: 04/24/2018 TECHNIQUE: Axial unenhanced CT imaging of the abdomen and pelvis performed. Reformatted coronal and sagittal images reviewed. A dose reduction technique was utilized with automated exposure control according to patient size. FINDINGS: Right and left lower lobe and imaged right middle lobe and lingula are clear. Heart is nor mal in size. Normal liver. Gallbladder has been resected. Normal spleen. Severe atrophy of the pancreas. There is mild heterogeneity of the pancreatic head. There is mild peripancreatic edema adjacent to the head of the pancreas. There is thickening of the descending segment of the duodenum and duodenal bulb. There is mild adjacent periduodenal edema and mild mesenteric thickening. There is a somewhat tethered angeles earance of the adjacent hepatic flexure of the colon and loop of small bowel towards this area of mes enteric thickening. Normal adrenal glands. Significant left renal atrophy. A few nonobstructing scattered left renal pelvic and cortical calcic effusions are present. Right kidney is very lobular in contour with multiple areas of cortical thinni ng due to scarring. There are several nonobstructing right renal cortical stones up to 8 mm. There is no right perinephric edema. There is minimal fullness of the right renal pelvis. AP pelvis is 1.2 cm . No right ureteral stone. There is moderate aorta and iliac artery atherosclerosis. No aneurysm. Inferior vena cava is flat and contour due to hypovolemia. No restricted adenopathy. There is a small hiatal hernia. The stomach is otherwise normal. There is loss of the fat plane betwe en the posterior margin of the duodenal bulb and anterior pancreatic head. There is a normal appearan ce of the small bowel loops. Normal right lower quadrant appendix. Mild sigmoid colon diverticulosis. There is no ascites. Unremarkable bladder. The uterus is minimally heterogeneous. Follicular changes are present within th e right ovary. Normal left ovary. No pelvic free fluid. Vacuum disc at L5-S1. There is moderate lower thoracic and mild lumbar degenerative endplate change. Intact bony pelvis. IMPRESSION: 1. Significant pancreatic body and tail atrophy with heterogeneity of the pancreatic head with mild peripancreatic and periduodenal edema. There is associated duodenal thickening. Findings are compatib le with mild pancreatitis and duodenitis. There is also soft tissue contiguity between the posterior wall of the duodenal bulb and pancreatic head with a tethered appearance of the adjacent hepatic flex ure and a loop of small bowel towards an area of mesenteric edema adjacent to the thickened duodenum which raises concern for an underlying malignant process. Endoscopy recommended. 2. Severe left renal atrophy. Multifocal right renal scarring. Nonobstructing bilateral renal stones. 3. Mild right renal pelvic dilatation with no obstructing etiology. Electronically signed by: Katlin Swanson DO 10/09/2019 12:36 AM CDT Due to temporary technical issues with the PACS/Fluency reporting system, reports are being signed by the in house radiologist without review asa courtesy to ensure prompt reporting. The interpreting ra diologist is fully responsible for the content of the report.
--- NOTE | 2019-10-11 17:35 | EDPHYS ---
Physician Documentation [facility] Name: Crystal Alexis Age: 59 yrs Sex: Female : 1960 Arrival Date: 10/08/2019 Time: 23:22 Bed 16 Private MD: ED Physician Manuel Hernández HPI: 10/07 23:44 This 59 yrs old Female presents to ER via Wheelchair with complaints of mh7 Abdominal Pain, Vomiting. 23:45 The patient presents with abdominal pain in the upper abdomen. Onset: The mh7 symptoms/episode began/occurred 1 day(s) ago. The symptoms do not radiate. Associated signs and symptoms: Pertinent positives: nausea and vomiting, Pertinent negatives: anorexia, blood in stools, chest pain, constipation, diarrhea, dysuria, fever, headache, hematuria, palpitations, shortness of breath, vaginal discharge, vomiting blood. The symptoms are described as intermittent, vague, waxing/waning. Modifying factors: The symptoms are alleviated by nothing, the symptoms are aggravated by food. Severity of pain: At its worst the pain was moderate today, in the emergency department the pain is unchanged. Historical: - Allergies: 23:29 No Known Allergies; sg - PMHx: 23:29 "irregular heart beat"; "left kidney does not work"; CVA; Diabetes - IDDM; sg Hypertension; Myocardial infarction; Renal Disease; - PSHx: 23:29 Cholecystectomy; Tubal ligation; sg - Immunization history:: Adult Immunizations up to date. - Social history:: Smoking status: Patient denies any tobacco usage or history of. ROS: 23:45 Constitutional: Negative for fever, chills, and weight loss, Eyes: Negative for injury, mh7 pain, redness, and discharge, ENT: Negative for injury, pain, and discharge, Neck: Negative for injury, pain, and swelling, Cardiovascular: Negative for chest pain, palpitations, and edema, Respiratory: Negative for shortness of breath, cough, wheezing, and pleuritic chest pain, Back: Negative for injury and pain, : Negative for injury, bleeding, discharge, and swelling, MS/Extremity: Negative for injury and deformity, Skin: Negative for injury, rash, and discoloration, Neuro: Negative for headache, weakness, numbness, tingling, and seizure, Psych: Negative for depression, anxiety, suicide ideation, homicidal ideation, and hallucinations, Allergy/Immunology: Negative for hives, rash, and allergies, Endocrine: Negative for neck swelling, polydipsia, polyuria, polyphagia, and marked weight changes, Hematologic/Lymphatic: Negative for swollen nodes, abnormal bleeding, and unusual bruising. Exam: 23:45 Constitutional: This is a well developed, well nourished patient who is awake, alert, mh7 and in no acute distress. Head/Face: Normocephalic, atraumatic. Neck: Trachea midline, no thyromegaly or masses palpated, and no cervical lymphadenopathy. Supple, full range of motion without nuchal rigidity, or vertebral point tenderness. No Meningismus. Chest/axilla: Normal chest wall appearance and motion. Nontender with no deformity. No lesions are appreciated. Cardiovascular: Regular rate and rhythm with a normal S1 and S2. No gallops, murmurs, or rubs. Normal PMI, no JVD. No pulse deficits. Respiratory: Lungs have equal breath sounds bilaterally, clear to auscultation and percussion. No rales, rhonchi or wheezes noted. No increased work of breathing, no retractions or nasal flaring. 23:45 Back: No spinal tenderness. No costovertebral tenderness. Full range of motion. Skin: Warm, dry with normal turgor. Normal color with no rashes, no lesions, and no evidence of cellulitis. MS/ Extremity: Pulses equal, no cyanosis. Neurovascular intact. Full, normal range of motion. Neuro: Awake and alert, GCS 15, oriented to person, place, time, and situation. Cranial nerves II-XII grossly intact. Motor strength 5/5 in all extremities. Sensory grossly intact. Cerebellar exam normal. Normal gait. Psych: Awake, alert, with orientation to person, place and time. Behavior, mood, and affect are within normal limits. 23:45 Abdomen/GI: Inspection: scar(s), are noted in the epigastric area, Bowel sounds: normal, in all quadrants, Palpation: moderate abdominal tenderness, in the upper abdomen, Rectal exam: the exam is deferred, because of patient request, Indicators: McBurney's point is not tender, Waldron's sign is negative, Rovsing's sign is negative, Obturator sign is negative, Psoas sign is negative, Liver: no appreciated palpable abnormalities, Hernia: not appreciated. 10/08 01:55 ECG was reviewed by the Attending Physician. [facility] Vital Signs: 10/07 23:30 BP 147 / 90; Pulse 108; Resp 17 S; Temp 97.6(TE); Pulse Ox 100% on R/A; Weight 68.04 kg jd3 (R); Height 5 ft. 0 in. (152.40 cm) (R); Pain 8/10; 10/08 00:20 BP 131 / 72; Pulse 94; Resp 17 S; Pulse Ox 100% on R/A; jd3 01:40 BP 149 / 73; Pulse 97; Resp 17 S; Pulse Ox 96% on R/A; jd3 03:07 BP 145 / 71; Pulse 98; Resp 17 S; Pulse Ox 99% on R/A; jd3 10/07 23:30 Body Mass Index 29.29 (68.04 kg, 152.40 cm) jd3 MDM: 10/07 23:33 Patient medically screened. [facility] 10/08 03:12 Differential diagnosis: AAA, bowel obstruction, diverticulitis, gastritis, [facility] gastroesophageal reflux disease, non-specific abd pain, pancreatitis, Peptic Ulcer Disease, urinary tract infection. Data reviewed: vital signs, nurses notes, old medical records, lab test result(s), amylase and lipase, CBC, electrolytes, urinalysis, EKG, radiologic studies, CT scan. Data interpreted: Pulse oximetry: on room air is 99 %. Interpretation: normal. Counseling: I had a detailed discussion with the patient and/or guardian regarding: the historical points, exam findings, and any diagnostic results supporting the discharge/admit diagnosis, the presence of at least one elevated blood pressure reading (>120/80) during this emergency department visit, lab results, radiology results, the need for outpatient follow up, to return to the emergency department if symptoms worsen or persist or if there are any questions or concerns that arise at home. Response to treatment: the patient's symptoms have resolved after treatment, the patient's blood pressure is in an acceptable range, mental status has returned to baseline, the patient no longer shows bradycardia, the patient is not short of breath, the patient is not tachycardic, the patient's pain is gone, the patient's temperature has normalized. 10/07 23:34 Order name: Basic Metabolic Panel; Complete Time: 00:40 [facility] 10/07 23:34 Order name: CBC with Diff; Complete Time: 00:40 [facility] 10/07 23:34 Order name: Hepatic Function; Complete Time: 00:40 [facility] 10/07 23:34 Order name: Lipase; Complete Time: 00:40 [facility] 10/07 23:38 Order name: CT Abd/Pelvis - Without Contrast [facility] 10/08 00:05 Order name: CBC Smear Scan; Complete Time: 00:40 ED[facility] 10/07 23:34 Order name: IV Saline Lock; Complete Time: 23:51 [facility] 10/07 23:34 Order name: Labs collected and sent; Complete Time: 23:51 [facility] 10/07 23:42 Order name: EKG; Complete Time: 23:43 [facility] 10/07 23:36 Order name: EKG - Nurse/Tech; Complete Time: 00:17 [facility] EC:55 Rate is 101 beats/min. Rhythm is regular. QRS [place] is Normal. [place] interval is normal. [facility] QRS interval is normal. QT interval is normal. No Q waves. T waves are Inverted in leads III, aVF. Clinical impression: Abnormal EKG without significant change and Sinus tachycardia. Administered Medications: 10/07 23:52 Drug: NS 0.9% 1000 ml Route: IV; Rate: 1000 ml; Site: left antecubital; [facility] 10/08 00:50 Follow up: Response: No adverse reaction; IV Status: Completed infusion; IV Intake: jd3 1000ml 10/07 23:52 Drug: Zofran (Ondansetron) 4 mg Route: IVP; Site: left antecubital; d3 10/08 00:50 Follow up: Response: No adverse reaction [facility] 10/07 23:52 Drug: Pepcid 20 mg Route: IVP; Site: left antecubital; d3 10/08 00:50 Follow up: Response: No adverse reaction [facility] 10/07 23:53 Drug: morphine 4 mg Route: IVP; Site: left antecubital; d3 10/08 00:50 Follow up: Response: No adverse reaction; RASS: Alert and Calm (0) jd3 01:40 Drug: morphine 4 mg Route: IVP; Site: right antecubital; jd3 02:40 Follow up: Response: No adverse reaction; RASS: Alert and Calm (0) jd3 Disposition: 10/09/19 03:15 Discharged to Home. Impression: Acute pancreatitis, unspecified, Duodenitis. - Condition is Stable. - Discharge Instructions: Acute Pancreatitis, [id number], Duodenitis. - Prescriptions for Zofran ODT 4 mg Oral tablet,disintegrating - place 1 tablet by TRANSLINGUAL route every 8 hours As needed; 10 tablet. Tylenol- Codeine #3 300-30 mg Oral Tablet - take 2 tablets by ORAL route every 6 hours As needed; 24 tablet. Pepcid 20 mg Oral Tablet - take 1 tablet by ORAL route once daily for 10 days; 10 tablet. - Medication Reconciliation Form, Thank You Letter, Antibiotic Education, Prescription Opioid Use form. - Follow up: Private Physician; When: 1 - 2 days; Reason: Worsening of condition, Re-evaluation by your physician. Follow up: Tyshawn Cooper MD; When: 1 - 2 days; Reason: Worsening of condition, Recheck today's complaints. - Problem is an acute exacerbation. - Symptoms have improved. Signatures: Dispatcher [employer] EDHerbert Cervantes RN RN sg Davies, Jonathon, RN RN jd3 Holmes, Maurice, MD MD mh7 Corrections: (The following items were deleted from the chart) 03:32 03:15 10/09/2019 03:15 Discharged to Home. Impression: Acute pancreatitis, unspecified; jd3 Duodenitis. Condition is Stable. Forms are Medication Reconciliation Form, Thank You Letter, Antibiotic Education, Prescription Opioid Use. Follow up: Private Physician; When: 1 - 2 days; Reason: Worsening of condition, Re-evaluation by your physician. Follow up: Tyshawn Cooper; When: 1 - 2 days; Reason: Worsening of condition, Recheck today's complaints. Problem is an acute exacerbation. Symptoms have improved. mh7
--- NOTE | 2019-10-11 17:35 | ER ---
Nurse's Notes [facility] Name: Crystal Alexis Age: 59 yrs Sex: Female : 1960 Arrival Date: 10/08/2019 Time: 23:22 Bed 16 Private MD: Diagnosis: Acute pancreatitis, unspecified;Duodenitis Presentation: 10/07 23:27 Chief complaint: Patient states: R side abd pain, with nausea that began one day ago sg now but worsening tonight, reports unsure if any fever at home but denies chills/body aches/vomiting/diarrhea. Coronavirus screen: Proceed with normal triage. Ebola Screen: Patient negative for fever greater than or equal to 101.5 degrees Fahrenheit, and additional compatible Ebola Virus Disease symptoms Patient denies exposure to infectious person. Patient denies travel to an Ebola-affected area in the 21 days before illness onset. No symptoms or risks identified at this time. Initial Sepsis Screen: Does the patient meet any 2 criteria? Does the patient have a suspected source of infection? Yes: Acute abdominal pain. Risk Assessment: Do you want to hurt yourself or someone else? Patient reports no desire to harm self or others. Onset of symptoms was October 08, 2019. Care prior to arrival: None. Activity prior to arrival: None. Transition of care: patient was not received from another setting of care. 23:27 Acuity: GARY 3 sg 23:27 Method Of Arrival: Wheelchair sg Historical: - Allergies: 23:29 No Known Allergies; sg - PMHx: 23:29 "irregular heart beat"; "left kidney does not work"; CVA; Diabetes - IDDM; sg Hypertension; Myocardial infarction; Renal Disease; - PSHx: 23:29 Cholecystectomy; Tubal ligation; sg - Immunization history:: Adult Immunizations up to date. - Social history:: Smoking status: Patient denies any tobacco usage or history of. Screenin:36 Abuse screen: Denies threats or abuse. Nutritional screening: No deficits noted. jd3 Tuberculosis screening: No symptoms or risk factors identified. Fall Risk Ambulatory Aid- None/Bed Rest/Nurse Assist (0 pts). Gait- Normal/Bed Rest/Wheelchair (0 pts) Mental Status- Oriented to own ability (0 pts). Total Peralta Fall Scale indicates No Risk (0-24 pts). Assessment: 23:31 General: Appears in no apparent distress. uncomfortable, Behavior is calm, cooperative, jd3 appropriate for age. Pain: Complains of pain in right upper quadrant and right lower quadrant Quality of pain is described as sharp, tender. Neuro: Level of Consciousness is awake, alert, obeys commands, Oriented to person, place, time, situation. Cardiovascular: Denies chest pain, Capillary refill < 3 seconds Patient's skin is warm and dry. Respiratory: Airway is patent Respiratory effort is even, unlabored, Respiratory pattern is regular, symmetrical, Denies cough, shortness of breath. GI: Abdomen is round non-distended, Abd is soft X 4 quads Abdomen is tender to palpation in right upper quadrant and right lower quadrant Reports lower abdominal pain, upper abdominal pain, nausea, vomiting. : No signs and/or symptoms were reported regarding the genitourinary system. EENT: No signs and/or symptoms were reported regarding the EENT system. Derm: Skin is intact, Skin is dry, Skin is normal, Skin temperature is warm. Musculoskeletal: Circulation, motion, and sensation intact. Range of motion: intact in all extremities. 10/08 00:21 Reassessment: Patient appears in no apparent distress at this time. Patient and/or jd3 family updated on plan of care and expected duration. Pain level reassessed. Patient is alert, oriented x 3, equal unlabored respirations, skin warm/dry/pink. Patient states feeling better. 01:40 Reassessment: Patient appears in no apparent distress at this time. Patient and/or jd3 family updated on plan of care and expected duration. Pain level reassessed. Patient is alert, oriented x 3, equal unlabored respirations, skin warm/dry/pink. 03:06 Reassessment: Patient and/or family updated on plan of care and expected duration. Pain jd3 level reassessed. Patient is alert, oriented x 3, equal unlabored respirations, skin warm/dry/pink. pt resting in bed with eyes closed, with even and unlabored respirations, call laura in reach. awaiting a disposition. 03:30 Reassessment: Patient appears in no apparent distress at this time. Patient and/or jd3 family updated on plan of care and expected duration. Pain level reassessed. Patient is alert, oriented x 3, equal unlabored respirations, skin warm/dry/pink. reported understanding of discharge instructions. assisted pt to ER lobby to wait for family. Patient states feeling better. Vital Signs: 10/07 23:30 BP 147 / 90; Pulse 108; Resp 17 S; Temp 97.6(TE); Pulse Ox 100% on R/A; Weight 68.04 kg jd3 (R); Height 5 ft. 0 in. (152.40 cm) (R); Pain 8/10; 10/08 00:20 BP 131 / 72; Pulse 94; Resp 17 S; Pulse Ox 100% on R/A; jd3 01:40 BP 149 / 73; Pulse 97; Resp 17 S; Pulse Ox 96% on R/A; jd3 03:07 BP 145 / 71; Pulse 98; Resp 17 S; Pulse Ox 99% on R/A; jd3 10/07 23:30 Body Mass Index 29.29 (68.04 kg, 152.40 cm) jd3 ED Course: 10/07 23:22 Patient arrived in ED. bp1 23:24 Manuel Hernández MD is Attending Physician. 7 23:24 Juanito Baron RN is Primary Nurse. jd3 23:28 Triage completed. sg 23:29 Arm band placed on. sg 23:36 Patient has correct armband on for positive identification. Bed in low position. Call jd3 light in reach. Side rails up X 1. Adult w/ patient. Pulse ox on. NIBP on. 23:53 Inserted saline lock: 20 gauge in left antecubital area, using aseptic technique. Blood jd3 collected. placed by [facility]. 10/08 00:14 CT Abd/Pelvis - Without Contrast In Process Unspecified. EDMS 03:14 Tyshawn Cooper MD is Referral Physician. [facility] 03:30 No provider procedures requiring assistance completed. IV discontinued, intact, jd3 bleeding controlled, No redness/swelling at site. Pressure dressing applied. Administered Medications: 10/07 23:52 Drug: NS 0.9% 1000 ml Route: IV; Rate: 1000 ml; Site: left antecubital; jd3 10/08 00:50 Follow up: Response: No adverse reaction; IV Status: Completed infusion; IV Intake: jd3 1000ml 10/07 23:52 Drug: Zofran (Ondansetron) 4 mg Route: IVP; Site: left antecubital; jd3 10/08 00:50 Follow up: Response: No adverse reaction jd3 10/07 23:52 Drug: Pepcid 20 mg Route: IVP; Site: left antecubital; jd3 10/08 00:50 Follow up: Response: No adverse reaction jd3 10/07 23:53 Drug: morphine 4 mg Route: IVP; Site: left antecubital; jd3 10/08 00:50 Follow up: Response: No adverse reaction; RASS: Alert and Calm (0) jd3 01:40 Drug: morphine 4 mg Route: IVP; Site: right antecubital; jd3 02:40 Follow up: Response: No adverse reaction; RASS: Alert and Calm (0) jd3 Intake: 00:50 IV: 1000ml; Total: 1000ml. jd3 Outcome: 03:15 Discharge ordered by . mh7 03:31 Discharged to home via wheelchair, with family. jd3 03:31 Condition: stable 03:31 Discharge instructions given to patient, Instructed on discharge instructions, follow up and referral plans. medication usage, Demonstrated understanding of instructions, follow-up care, medications, Prescriptions given X 3. 03:32 Patient left the ED. jd3 Signatures: Dispatcher [employer] EDMS Herbert Quintana RN RN sg Davies, Jonathon, RN RN jd3 Paniauga, Brittany bp1 Holmes, Maurice, MD MD mh7 Corrections: (The following items were deleted from the chart) 03:08 01:40 BP 149 / 73; Pulse 77bpm; Resp 17bpm; Spontaneous; Pulse Ox 96% RA; jd3 jd3
== END 2019-10-09 03:32 | disposition home or self-care (01) ==
LOC: ER 23:20
DX: K85.90 Acute pancreatitis without necrosis or infection, unspecified (principal); K29.80 Duodenitis without bleeding; I12.9 Hypertensive chronic kidney disease with stage 1 through stage 4 chronic kidney disease, or unspecified chronic kidney disease; N18.9 Chronic kidney disease, unspecified; E11.22 Type 2 diabetes mellitus with diabetic chronic kidney disease
CPT/HCPCS: 85025; 80048; 36415; 80076; 83690; 74176; 99284; J7030; J2405

== ENCOUNTER 2019-10-16 15:31 | Emergency (ER) | payer OTHER ==
--- OUTSIDE RECORDS SUMMARY | 2019-10-16 15:35 | XMS REPORT | Continuity of Care Document ---
:1960 Author Organization [facility] t Address [address] [place] [address] Care Team Providers Name Role Phone Unavailable [...] [facility] PVD PVD Diagnosis Active [facility] (periphera Sole kes - l vascular l vascular Me moria disease) disease) l Outpati ent Clinics Uncontroll Uncontroll Problem Active [facility] ed type 2 ed type 2 [facility] - diabetes diabetes Memori a mellitus mellitus l with with Outpati hyperglyce hyperglyce en t [facility] S/P S/P Problem Active [facility] arterial arterial [facility] stent stent [facility] Kidney Kidney Problem Active [facility] disease disease [facility] Allergies, Adverse Reactions, Alerts Allergy Allergy Status Severity Reaction(s) Onset Inactive Treating Comm ents Source Name Type Date Date Clinician No Known DA Active U 2018-05 [facility]ie 0[facility]18 [place] 00:[facility]: [address] Medications Ordered Filled Start Stop Current [...] (dispense Memoria 00 lancets of l record) [facility] Gabapentin Gabapentin Yes Keyla [address] [facility] 1-29 [facility] 00[facility] [place] 2018-05 Yes Keyla as [facility] directed [facility] - [facility] Metoprolol Metoprolol Yes Keyla [address] [facility] Succinate Succinate [facility] ER ER [facility] Tresiba Tresiba Yes Keyla as [facility] FlexTouch FlexTouch [facility] directed [facility]ics Lyrica Lyrica Yes Keyla 2 capsule [facility] Lasix Lasix Yes Keyla [address] [facility] Pravastatin Pravastatin Yes Keyla [address] [facility] [address] Sodium Sodium [facility] BusPIRone BusPIRone Yes Keyla [address] [facility] [address] HCl HCl Mill[facility] as needed [facility] for [facility] anxiety l [facility] Plavix Plavix Yes Keyla [address] [facility] Spironolact Spironolact Keyla [address] one one 10-25 [facility] - 00:00 [facility] :00 l [facility] Procedures This patient has no known procedures. Encounters Start End Encounter Admission Attending Care Care Encounter Source Date/Time Date/Time Type Type Clinicians Facility Department ID 2019-06-09 2019-06-09 Outpatient Sony Frederick [id number] 13:00[facility]00 13:00:00 [facility] 2019-03-29 2019-03-29 Outpatient Sony Cardozat [id number] 14:58:00 14:58:00 [facility] 2019-03-10 2019-03-10 Outpatient Sony Cardozat [id number] 09:00:00 09:00:00 [facility] Results Test Description Test Time Test [...] MG/DL 60-99 H = GLUBED) GLUCOSE BEDSIDE [id number] 20:20:00 Test Item Value Reference Range Interpretation Comments GLUCOSE BEDSIDE TESTING (test code 228 MG/DL 60-99 H = GLUBED) PTT [id number] 19:26:00 Test Item Value Reference Range Interpretation Comments PTT ACTIVATED (test code = APTT) 23.4 SECONDS 22.0-33.0 N GLUCOSE BEDSIDE [id number] 16:04:00 Test Item Value Reference Range Interpretation Comments GLUCOSE BEDSIDE TESTING (test code 261 MG/DL 60-99 H = GLUBED) PTT [id number] 13:09:00 Test Item Value Reference Range Interpretation Comments PTT ACTIVATED (test code = APTT) 25.4 SECONDS 22.0-33.0 N GLUCOSE BEDSIDE [id number] 11:51:00 Test Item Value Reference Range Interpretation Comments GLUCOSE BEDSIDE TESTING (test code 220 MG/DL 60-99 H = GLUBED) GLUCOSE BEDSIDE [id number] 10:53:00 Test Item Value Reference Range Interpretation Comments GLUCOSE BEDSIDE TESTING (test code 213 MG/DL 60-99 H = GLUBED) GLUCOSE BEDSIDE [id number] 10:53:00 Test Item Value Reference Range Interpretation Comments GLUCOSE BEDSIDE TESTING (test code 271 MG/DL 60-99 H = GLUBED) PTT [id number] 10:34:00 Test Item Value Reference Range Interpretation Comments PTT ACTIVATED (test code = APTT) 27.9 SECONDS 22.0-33.0 GLUCOSE BEDSIDE [id number] 08:15:00 Test Item Value Reference Range Interpretation Comments GLUCOSE BEDSIDE TESTING (test code 272 MG/DL 60-99 H = GLUBED) PTT [id number] 03:34:00 Test Item Value Reference Range Interpretation Comments PTT ACTIVATED (test code = APTT) 44.1 SECONDS 22.0-33.0 H PLATELET [id number] 03:09:00 Test Item Value Reference Range Interpretation Comments PLATELET COUNT (test code = PLT) 165 K/MM3 129-368 N GLUCOSE BEDSIDE [id number] 20:14:00 Test Item Value Reference Range Interpretation Comments GLUCOSE BEDSIDE TESTING (test code 267 MG/DL 60-99 H = GLUBED) PTT [id number] 18:43:00 Test Item Value Reference Range Interpretation Comments PTT ACTIVATED (test code = APTT) 24.8 SECONDS 22.0-33.0 N CBC W/AUTO [id number] 18:30:00 Test Item Value Reference Range Interpretation [...] 0.00 K/mm3 0.0-0.1 N NRBC#) GLUCOSE BEDSIDE [id number] 17:45:00 Test Item Value Reference Range Interpretation Comments GLUCOSE BEDSIDE TESTING (test code 274 MG/DL 60-99 H = GLUBED) GLUCOSE BEDSIDE [id number] 13:13:00 Test Item Value Reference Range Interpretation Comments GLUCOSE BEDSIDE TESTING (test code 173 MG/DL 60-99 H = GLUBED) BASIC METABOLIC [id number] 05:40:00 Test Item Value Reference Range Interpretation [...] 8.2 MG/DL 8.4-10.2 L CA) CBC W/AUTO [id number] 05:13:00 Test Item Value Reference Range Interpretation [...] 0.00 K/mm3 0.0-0.1 N NRBC#) GLUCOSE BEDSIDE [id number] 20:51:00 Test Item Value Reference Range Interpretation Comments GLUCOSE BEDSIDE TESTING (test code 229 MG/DL 60-99 H = GLUBED) GLYCOSYLATED HEMOGLOBIN [id number] 16:13:00 Test Item Value Reference Range Interpretation [...] MG/DL 70-110 H (test code = MBG) [id number] 10:03:00 Test Item Value Reference Range Interpretation Comments ACT-ISTAT (test code = ACTI) 197 SEC 74-137 H GLUCOSE BEDSIDE [id number] 07:34:00 Test Item Value Reference Range Interpretation Comments GLUCOSE BEDSIDE TESTING (test code 385 MG/DL 60-99 HH = GLUBED) BASIC METABOLIC [id number] 06:59:00 Test Item Value Reference Range Interpretation [...] 0-189 mg/dL VERY HIGH...... ...>/= 190 mg/dL [id number] 06:59:00 Test Item Value Reference Range Interpretation Comments MAGNESIUM (test code = MAG) 2.0 MG/DL 1.6-2.3 N PROTHROMBIN [id number] 06:50:00 Test Item Value Reference Range Interpretation [...] amanda embolism. 3.0 - 4.5 Comments to [employer] Head: WILL BRING TO LABPTT [id number] 06:50:00 Test Item Value Reference Range Interpretation Comments PTT ACTIVATED (test > 139.0 SECONDS 22.0-33.0 HH YANCEY D TO & code = APTT) READBACK ON 02/27/19 AT 065 0 Lin Yeung nnes Comments to [employer] Head: WILL BRING TO LABBASIC METABOLIC [id number] 06:37:00 Test Item Value Reference Range Interpretation [...] LDL (test code = LDL) MG/DL 0-99 [id number] 06:37:00 Test Item Value Reference Range Interpretation Comments MAGNESIUM (test code = MAG) MG/DL 1.6-2.3 BASIC METABOLIC [id number] 06:35:00 Test Item Value Reference Range Interpretation [...] LDL (test code = LDL) MG/DL 0-99 [id number] 06:35:00 Test Item Value Reference Range Interpretation Comments MAGNESIUM (test code = MAG) MG/DL 1.6-2.3 BASIC METABOLIC [id number] 06:34:00 Test Item Value Reference Range Interpretation [...] LDL (test code = LDL) MG/DL 0-99 [id number] 06:34:00 Test Item Value Reference Range Interpretation Comments MAGNESIUM (test code = MAG) MG/DL 1.6-2.3 CBC W/AUTO [id number] 06:27:00 Test Item Value Reference Range Interpretation [...]
--- NOTE | 2019-10-16 16:22 | RAD REPORT ---
EXAM DESCRIPTION: RAD - Foot Left 3 View - 10/16/2019 4:07 pm CLINICAL HISTORY: wound, third toe COMPARISON: Foot Left 3 View dated 09/24/2019 FINDINGS: No acute or subacute fracture changes. No dislocation or periosteal reaction. Soft tissues of the third toe are not grossly different from the adjacent toes and not clearly different from the September 23 study. No bone destructive changes identified. Plantar spur again noted. No acute or destruct scarlett bony process. No air or foreign body in the soft tissues. IMPRESSION: Negative left foot examination for new or progressive finding from September 23.
--- NOTE | 2019-10-16 16:58 | ER ---
Nurse's Notes [facility] Name: Crystal Alexis Age: 59 yrs Sex: Female : 1960 Arrival Date: 10/16/2019 Time: 15:36 Bed 15 Private MD: Diagnosis: Unspecified open wound of left lesser toe(s) with damage to nail Presentation: 10/15 15:43 Chief complaint: Patient states: Left foot injury 2 weeks ago , seen here. No new ll1 injury. 3rd toe nail fell off. Site is bruised and painful still. Coronavirus screen: Proceed with normal triage. Patient denies a cough. Patient denies shortness of breath or difficulty breathing. Patient denies measured and/or subjective temperature greater than 100.4F prior to today's visit. Patient denies travel on a cruise ship or to a country the [facility] currently lists as an affected area. Patient denies contact with known and/or suspected case of COVID-19. Ebola Screen: Patient denies travel to an Ebola-affected area in the 21 days before illness onset. Initial Sepsis Screen: Does the patient meet any 2 criteria? No. Patient's initial sepsis screen is negative. Risk Assessment: Do you want to hurt yourself or someone else? Patient reports no desire to harm self or others. Onset of symptoms was October 03, 2019. 15:43 Method Of Arrival: Wheelchair ll1 15:43 Acuity: GARY 4 ll1 16:00 Initial Sepsis Screen: Does the patient have a suspected source of infection? Yes: Skin vc breakdown/wound. 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 - Social history:: Smoking status: Patient reports the use of cigarette tobacco products, smokes one-half pack cigarettes per day, Patient/guardian denies using alcohol, street drugs. Screenin:00 Abuse screen: Denies threats or abuse. Nutritional screening: No deficits noted. vc Tuberculosis screening: No symptoms or risk factors identified. Fall Risk None identified. Assessment: 16:00 General: Appears in no apparent distress. uncomfortable, Behavior is calm, cooperative, vc appropriate for age. Pain: Complains of pain in left third toe. Neuro: Level of Consciousness is awake, alert, obeys commands, Oriented to person, place, time. Cardiovascular: Capillary refill < 3 seconds Patient's skin is warm and dry. Respiratory: Respiratory effort is even, unlabored, Respiratory pattern is regular, symmetrical. GI: No signs and/or symptoms were reported involving the gastrointestinal system. : No signs and/or symptoms were reported regarding the genitourinary system. Derm: Wound noted left third toe. Musculoskeletal: Range of motion: intact in all extremities. 17:00 Reassessment: Patient appears in no apparent distress at this time. Patient and/or vc family updated on plan of care and expected duration. Pain level reassessed. Patient is alert, oriented x 3, equal unlabored respirations, skin warm/dry/pink. Vital Signs: 15:43 BP 99 / 54; Pulse 87; Resp 18; Temp 98.4; Pulse Ox 98% ; Pain 10/10; ll1 ED Course: 15:36 Patient arrived in ED. fj1 15:40 Su [facility]-C [facility] kb 15:40 Hiram Awan MD is Attending Physician. kb 15:46 Triage completed. ll1 15:47 Arm band placed on Patient placed in an exam room, on a stretcher. ll1 16:00 Patient has correct armband on for positive identification. Bed in low position. Pulse vc ox on. NIBP on. 16:07 Foot Left 3 View XRAY In Process Unspecified. EDMS 16:22 Lakshmi Orr, RN is Primary Nurse. vc 17:10 No provider procedures requiring assistance completed. Patient did not have IV access vc during this emergency room visit. Administered Medications: 17:09 Drug: Flexeril 10 mg Route: PO; vc 19:09 Follow up: Response: No adverse reaction; Medication administered at discharge. vc 17:10 Drug: KeFLEX 500 mg Route: PO; vc 17:10 Follow up: Response: No adverse reaction; Medication administered at discharge. vc 17:10 Follow up: Response: No adverse reaction; Medication administered at discharge. vc Outcome: 16:57 Discharge ordered by . kb 17:00 Discharged to home ambulatory. vc 17:00 Condition: good 17:00 Discharge instructions given to patient, Instructed on discharge instructions, follow up and referral plans. Demonstrated understanding of instructions, follow-up care, medications, Prescriptions given X 1. 17:10 Patient left the ED. Signatures: Dispatcher [employer] Su Benitez FNP-C FNP-Lakshmi Ahuja RN RN vc James, Frank fj1 Tolu Gould RN RN ll1
--- NOTE | 2019-10-16 16:58 | EDPHYS ---
Physician Documentation [facility] Name: Crystal Alexis Age: 59 yrs Sex: Female : 1960 Arrival Date: 10/16/2019 Time: 15:36 Bed 15 Private MD: ED Physician Hiram Awan HPI: 10/15 16:12 This 59 yrs old Female presents to ER via Wheelchair with complaints of Foot kb Injury. 16:12 The patient presents with an injury, swelling, tenderness, nail avulsion to left third kb toe. The complaints affect the left foot. Context: The problem was sustained at home, the patient can fully bear weight, the patient is able to ambulate. Onset: The symptoms/episode began/occurred 2 week(s) ago. Modifying factors: The symptoms are alleviated by nothing, the symptoms are aggravated by nothing. Associated signs and symptoms: Pertinent positives: swelling, Pertinent negatives: calf tenderness, fever, nausea, numbness, rash, tingling, vomiting, warmth, weakness. Severity of symptoms: At their worst the symptoms were mild, moderate, in the emergency department the symptoms are unchanged. The patient has not experienced similar symptoms in the past. The patient has not recently seen a physician. Pt reports she injured her left third toe 2 weeks ago and it still hasn't healed. . 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 - Social history:: Smoking status: Patient reports the use of cigarette tobacco products, smokes one-half pack cigarettes per day, Patient/guardian denies using alcohol, street drugs. ROS: 16:09 Constitutional: Negative for fever, chills, and weight loss, Cardiovascular: Negative kb for chest pain, palpitations, and edema, Respiratory: Negative for shortness of breath, cough, wheezing, and pleuritic chest pain, Abdomen/GI: Negative for abdominal pain, nausea, vomiting, diarrhea, and constipation, Back: Negative for injury and pain, Neuro: Negative for headache, weakness, numbness, tingling, and seizure. 16:09 MS/extremity: Positive for injury or acute deformity, ecchymosis, pain, swelling, tenderness, of the left third toe. Exam: 16:09 Constitutional: This is a well developed, well nourished patient who is awake, alert, kb and in no acute distress. Head/Face: Normocephalic, atraumatic. Chest/axilla: Normal chest wall appearance and motion. Nontender with no deformity. No lesions are appreciated. Cardiovascular: Regular rate and rhythm with a normal S1 and S2. No gallops, murmurs, or rubs. Normal PMI, no JVD. No pulse deficits. Respiratory: Lungs have equal breath sounds bilaterally, clear to auscultation and percussion. No rales, rhonchi or wheezes noted. No increased work of breathing, no retractions or nasal flaring. Abdomen/GI: Soft, non-tender, with normal bowel sounds. No distension or tympany. No guarding or rebound. No evidence of tenderness throughout. Neuro: Awake and alert, GCS 15, oriented to person, place, time, and situation. Cranial nerves II-XII grossly intact. Motor strength 5/5 in all extremities. Sensory grossly intact. Cerebellar exam normal. Normal gait. 16:09 Musculoskeletal/extremity: Extremities: grossly normal except: noted in the left third toe: ecchymosis, pain, swelling, tenderness, ROM: intact in all extremities, Circulation is intact in all extremities. Sensation intact. Weight bearing: able to fully bear weight, Nails: complete avulsion, of the Left third toenail. Vital Signs: 15:43 BP 99 / 54; Pulse 87; Resp 18; Temp 98.4; Pulse Ox 98% ; Pain 10/10; ll1 MDM: 15:41 Patient medically screened. kb 16:09 Data reviewed: vital signs, nurses notes. Data interpreted: Pulse oximetry: on room air kb is 98 %. Interpretation: normal. 16:11 Counseling: I had a detailed discussion with the patient and/or guardian regarding: the kb historical points, exam findings, and any diagnostic results supporting the discharge/admit diagnosis, radiology results, the need for outpatient follow up, a family practitioner, a general surgeon, to return to the emergency department if symptoms worsen or persist or if there are any questions or concerns that arise at home. 16:59 ED course: Pt educated to follow up with PCP and wound care. Educated to keep wound kb clean and dry. Pt now complaining of pain to left leg that feels like muscle cramps. States she has had this pain since February. Educated to follow up with PCP about this chronic pain. 10/15 16:54 Order name: Glucose, Ancillary Testing; Complete Time: 17:00 EDMS 10/15 15:43 Order name: Foot Left 3 View XRAY; Complete Time: 16:25 kb 10/15 16:25 Order name: Blood Glucose Level; Complete Time: 17:03 kb Administered Medications: 17:09 Drug: Flexeril 10 mg Route: PO; vc 19:09 Follow up: Response: No adverse reaction; Medication administered at discharge. vc 17:10 Drug: KeFLEX 500 mg Route: PO; vc 17:10 Follow up: Response: No adverse reaction; Medication administered at discharge. vc 17:10 Follow up: Response: No adverse reaction; Medication administered at discharge. vc Disposition: 17:19 Co-signature as Attending Physician, Hiram Awan MD. rn Disposition: 10/16/19 16:57 Discharged to Home. Impression: Unspecified open wound of left lesser toe(s) with damage to nail. - Condition is Stable. - Discharge Instructions: Nail Avulsion, Wound Care. - Prescriptions for Keflex 500 mg Oral Capsule - take 1 capsule by ORAL route every 8 hours for 10 days; 30 capsule. - Medication Reconciliation Form, Thank You Letter, Antibiotic Education, Prescription Opioid Use form. - Follow up: Emergency Department; When: As needed; Reason: Worsening of condition. Follow up: Private Physician; When: 2 - 3 days; Reason: Recheck today's complaints, Continuance of care, Re-evaluation by your physician. Signatures: Dispatcher [employer] [facility] Su Shah, G[employer]PE[employer] SINGER-C G[employer]PE[employer] SINGER-Aliriob Hiram Awan MD MD rn Calcote, Vanessa, RN RN Tolu Cardoso RN RN ll1 Corrections: (The following items were deleted from the chart) 17:10 16:57 10/16/2019 16:57 Discharged to Home. Impression: Unspecified open wound of left vc lesser toe(s) with damage to nail. Condition is Stable. Forms are Medication Reconciliation Form, Thank You Letter, Antibiotic Education, Prescription Opioid Use. Follow up: Emergency Department; When: As needed; Reason: Worsening of condition. Follow up: Private Physician; When: 2 - 3 days; Reason: Recheck today's complaints, Continuance of care, Re-evaluation by your physician. kb
[2019-10-16] MEDS ORDERED: CEPHALEXIN 250 MG CAP ONE (17:13)
[2019-10-16] MEDS ORDERED: CYCLOBENZAPRINE 10 MG TAB ONE (17:13)
[2019-10-16 17:17] VITALS: BP 99/54; TEMP 98.4; O2SAT 98
== END 2019-10-16 17:10 | disposition home or self-care (01) ==
LOC: ER 15:31
DX: S91.205A Unspecified open wound of left lesser toe(s) with damage to nail, initial encounter (principal); X58.XXXA Exposure to other specified factors, initial encounter; Y93.89 Activity, other specified; Y92.9 Unspecified place or not applicable; I10 Essential (primary) hypertension; F17.210 Nicotine dependence, cigarettes, uncomplicated
CPT/HCPCS: 82947; 99284